=== PATIENT | female | born 1965 ===

== ENCOUNTER 2016-04-07 08:16 | Emergency (ER) | payer OTHER ==
--- NOTE | 2016-04-07 09:11 | ED CLINICAL REPORT ---
Clinical Report - Physicians/Mid Levels [facility] [address] [place] [address] 04/07/2016 8:19 Patient: NICOLE MARTIN Time Seen: 08:35; initial patient contact. Arrived- By private vehicle. Historian- patient. HISTORY OF PRESENT ILLNESS Chief Complaint: DENTAL PAIN. This started about 1 week ago and is still present. It was gradual in onset. Pain described as moderate. The patient has had toothache and nasal congestion. No swollen jaw or face, jaw pain or facial pain. Similar symptoms previously: Several times. Recent medical care: The patient was seen recently in a clinic. ( Dental extraction 4 days ago, out of Clinda and pain Rx.). REVIEW OF SYSTEMS No fever or headache. All systems otherwise negative, except as recorded above. PAST HISTORY Type II diabetes. High cholesterol. Hypertenson. Medications: Metformin 2000 mg bid. Allergies: Bactrim. Ciprofloxacin. Diflucan. SOCIAL HISTORY Former smoker. No alcohol use or drug use. ADDITIONAL NOTES The nursing notes have been reviewed with agreement regarding the chief complaint, PMH and patient medications and allergies. PHYSICAL EXAM Vital Signs: 04/07/2016 08:30 BP: 134/66. HR: 80. RR: 18. O2 saturation: 100%. Temp: 97.7 F. Pain level now: 7/10. Have been reviewed as normal. Appearance: Alert. No acute distress. Head: Normal external inspection. ENT: Severe, extensive dental decay. Moderate dental tenderness of multiple teeth (upper right medial incisor, upper left medial incisor). No trismus present. The mucous membranes are not dry. Neck: No adenopathy. CVS: Normal heart rate and rhythm. Heart sounds normal. Respiratory: No respiratory distress. Breath sounds normal. PROGRESS AND PROCEDURES Disposition: Discharged home in good condition. Condition: good. CLINICAL IMPRESSION Alveolar dental abscess with sinus tract. INSTRUCTIONS Prescription Medications: Hydrocodone/APAP 5mg / 325mg: take 1 orally every 6 hours as needed for pain. Dispense fifteen (15). No refill. Cleocin 300 mg: take 1 capsule orally every 8 hours for 7 days. No refill. Substitution is permissible. (Electronically signed by Oscar Hickey Dr. 04/07/2016 9:13)
--- NOTE | 2016-04-07 09:11 | ED CLINICAL REPORT ---
Clinical Report - Physicians/Mid Levels [facility] [address] [place] [address] 04/07/2016 8:19 Patient: NICOLE MARTIN Time Seen: 08:35; initial patient contact. Arrived- By private vehicle. Historian- patient. HISTORY OF PRESENT ILLNESS Chief Complaint: DENTAL PAIN. This started about 1 week ago and is still present. It was gradual in onset. Pain described as moderate. The patient has had toothache and nasal congestion. No swollen jaw or face, jaw pain or facial pain. Similar symptoms previously: Several times. Recent medical care: The patient was seen recently in a clinic. ( Dental extraction 4 days ago, out of Clinda and pain Rx.). REVIEW OF SYSTEMS No fever or headache. All systems otherwise negative, except as recorded above. PAST HISTORY Type II diabetes. High cholesterol. Hypertenson. Medications: Metformin 2000 mg bid. Allergies: Bactrim. Ciprofloxacin. Diflucan. SOCIAL HISTORY Former smoker. No alcohol use or drug use. ADDITIONAL NOTES The nursing notes have been reviewed with agreement regarding the chief complaint, PMH and patient medications and allergies. PHYSICAL EXAM Vital Signs: 04/07/2016 08:30 BP: 134/66. HR: 80. RR: 18. O2 saturation: 100%. Temp: 97.7 F. Pain level now: 7/10. Have been reviewed as normal. Appearance: Alert. No acute distress. Head: Normal external inspection. ENT: Severe, extensive dental decay. Moderate dental tenderness of multiple teeth (upper right medial incisor, upper left medial incisor). No trismus present. The mucous membranes are not dry. Neck: No adenopathy. CVS: Normal heart rate and rhythm. Heart sounds normal. Respiratory: No respiratory distress. Breath sounds normal. PROGRESS AND PROCEDURES Disposition: Discharged home in good condition. Condition: good. CLINICAL IMPRESSION Alveolar dental abscess with sinus tract. INSTRUCTIONS Prescription Medications: Hydrocodone/APAP 5mg / 325mg: take 1 orally every 6 hours as needed for pain. Dispense fifteen (15). No refill. Cleocin 300 mg: take 1 capsule orally every 8 hours for 7 days. No refill. Substitution is permissible. (Electronically signed by Oscar Hickey Dr. 04/07/2016 9:13)
--- NOTE | 2016-04-07 09:12 | ED ORDER SUMMARY ---
..... Patient: NICOLE MARTIN OrderSheet [facility] VisitID: [id number] [address] [place] [address] 50y, F Registration Date/Time: 04/07/2016 ORDER SHEET Weight: 86.1 kg (stated) Allergies: Ciprofloxacin, Diflucan, Bactrim GENERAL ORDERS: MEDICATION ORDERS: Toradol IM 60 mg (NOW) (08:48 04/07/2016 Erik Reese) (Ack 8:55 SStone R.N.) (9:01 SStone R.N.) Clindamycin PO 300 mg (NOW) (08:49 04/07/2016 Erik Reese) (Ack 8:55 SStone R.N.) (9:01 SStone R.N.) IV FLUIDS: ORDER SHEET NOTES: [Electronically signed by Oscar Hickey Dr. (09:13 04/07/2016)] [Electronically signed by Samantha Tate R.N. (09:19 04/07/2016)] [Electronically locked/signed by Samantha Tate R.N. (09:19 04/07/2016)]
--- NOTE | 2016-04-07 09:12 | ED ORDER SUMMARY ---
..... Patient: NICOLE MARTIN OrderSheet [facility] VisitID: [id number] [address] [place] [address] 50y, F Registration Date/Time: 04/07/2016 ORDER SHEET Weight: 86.1 kg (stated) Allergies: Ciprofloxacin, Diflucan, Bactrim GENERAL ORDERS: MEDICATION ORDERS: Toradol IM 60 mg (NOW) (08:48 04/07/2016 Erik Reese) (Ack 8:55 SStone R.N.) (9:01 SStone R.N.) Clindamycin PO 300 mg (NOW) (08:49 04/07/2016 Erik Reese) (Ack 8:55 SStone R.N.) (9:01 SStone R.N.) IV FLUIDS: ORDER SHEET NOTES: [Electronically signed by Oscar Hickey Dr. (09:13 04/07/2016)] [Electronically signed by Samantha Tate R.N. (09:19 04/07/2016)] [Electronically locked/signed by Samantha Tate R.N. (09:19 04/07/2016)]
--- NOTE | 2016-04-07 09:12 | ED NURSING NOTES ---
Clinical Report - Nurses [facility] [address] [place] [address] 04/07/2016 8:19 Patient: NICOLE MARTIN TRIAGE Triage time 08:30. Acuity: LEVEL 4. --08:38 Samantha Tate R.N. 08:30 04/07/16. BP: 134/66. HR: 80. RR: 18. O2 saturation: 100%. Temp: 97.7 F. Pain level now: 09/18. --08:38 Samantha Tate R.N. Chief Complaint: (dental pain from recent extraction). --09:19 Samantha Tate R.N. Weight: 86.1 kg stated. Height/Length: 64 inches Per Patient. BMI: 32.6. --08:35 Samantha Tate R.N. Medications Metformin 2000 mg bid. --08:33 Samantha Tate R.N. Allergies Ciprofloxacin. --08:32 Samantha Tate R.N. Diflucan. --08:32 Samantha Tate R.N. Bactrim. --08:32 Samantha Tate R.N. History Arrived by private vehicle. Historian: patient. This started yesterday. Onset. (pt had two front teeth pulled 4 days ago, now with increased pain, swelling, slight drainage and significant pain. Has fu with dentist Sunday, but could not be seen today.). ( Pt. states she was prescribed #12 Percocet Sunday after procedure, took last tablet yesterday.). ( Pt. has not taken metformin since Sunday.). SURGERY HX: (x 2). ( Right ovary removal, bladder sling). SOCIAL HX: Smoker- current status unknown (quit 20 years ago). No alcohol use or drug use. No infectious disease exposure. SELF HARM ASSESSMENT: A self harm assessment was performed. The patient answered "no" to the question "Do you have thoughts of harming or killing yourself?" and "Have you recently had thoughts about harming or killing others?". FALL RISK ASSESSMENT: Fall risk assessment completed. No fall risk identified. NUTRITIONAL RISK ASSESSMENT: The nutritional risk assessment revealed no deficiencies. FUNCTIONAL ASSESSMENT: Functional assessment: no impairments noted. LEARNING NEEDS ASSESSMENT: The learning needs assessment revealed no barriers. SKIN INTEGRITY ASSESSMENT: Skin integrity risk assessment completed. No skin integrity risk identified. --08:38 Samantha Tate R.N. ( Pt. had been given clindamycin, took last dose this morning.). --08:39 Samantha Tate R.N. ( dental pain). --09:19 Samantha Tate R.N. PROBLEMS: Type II diabetes. High cholesterol. Hypertenson. --08:33 Samantha Tate R.N. Interventions ID band on patient. To treatment room. --08:38 Samantha Tate R.N. PHYSICAL ASSESSMENT GENERAL / NEURO / PSYCH: Alert. Oriented X 4. Appears in no acute distress. HEENT: Pupils equal, round and reactive to light. Pharynx within normal limits. Voice within normal limits. Dental tenderness. Dental decay. ( obvious recent dental extraction, upper). Mucous membranes are pink. RESPIRATORY: Respirations not labored. SKIN: Skin is warm. Normal skin turgor. --08:39 Samantha Tate R.N. NURSING PROGRESS NOTES Reassurance given. Patient identifiers checked. Call light placed in reach. Bed placed in lowest position. Patient waiting for evaluation. --08:40 Samantha Tate R.N. 09:01 04/07/2016 Clindamycin PO Capsules 300 mg given. --09:01 Samantha Tate R.N. 09:04/07/2016 Toradol (Ketorolac Tromethamine) IM 60 mg given. Given in the left gluteus carrie. Allergies verified and confirmed 5 rights. --09:01 Samantha Tate R.N. DISPOSITION / DISCHARGE Departure time: :17. Condition at departure: unchanged and stable. Reviewed medication(s) side effects information. Prescription(s) given to the patient. Patient verbalized understanding. Written instructions provided in Fijian. The patient was discharged home and accompanied by family. She left the Emergency Department ambulatory and via private vehicle. Family member driving. --09:18 Samantha Tate R.N. 09:17 04/07/16. BP: 134/66. HR: 80. RR: 18. O2 saturation: 100%. Temp: 97.7 F. Pain level now: 07/19. --09:18 Samantha Tate R.N. Locked/Released at 04/07/2016 9:19 by Samantha Tate R.N.
--- NOTE | 2016-04-07 09:20 | ED MED RECONCILIATION SUMMARY ---
Patient: NICOLE MARTIN Medication Reconciliation Report [facility] VisitID: [id number] [address] [place] [address] 50y, F Registration Date/Time: 04/07/2016 Weight: 86.1 kg Height/Length: 64 in. BMI: 32.6 ALLERGIES: Bactrim, Ciprofloxacin, Diflucan The patient's Home Medications are listed below: THE FOLLOWING MEDICATIONS NEED TO BE RECONCILED: Metformin 2000 mg bid The source(s) of the original Home Medication information: Not obtained. The following Medications were given to the patient in the Emergency Department: Clindamycin [PO] PO 300 mg, administered: 04/07/2016 9:01:00 AM Toradol [IM] IM 60 mg, administered: 04/07/2016 9:01:00 AM The following Medications were prescribed to the patient: Hydrocodone/APAP 5mg / 325mg: take 1 orally every 6 hours as needed for pain. Dispense fifteen (15). No refill. -- Oscar Hickey Dr. Cleocin 300 mg: take 1 capsule orally every 8 hours for 7 days. No refill. Substitution is permissible. -- Oscar Hickey Dr.
--- NOTE | 2016-04-07 09:20 | ED DISCHARGE INSTRUCTIONS ---
Patient: NICOLE MARTIN General Instructions [facility] VisitID: [id number] [place] [address] 50y, F Registration Date/Time: 04/07/2016 Alveolar dental abscess with sinus tract. INSTRUCTIONS Prescription Medications: Hydrocodone/APAP 5mg / 325mg: take 1 orally every 6 hours as needed for pain. Dispense fifteen (15). No refill. Cleocin 300 mg: take 1 capsule orally every 8 hours for 7 days. No refill. Substitution is permissible. ADDITIONAL INFORMATION Dental Abscess A dental abscess is an infection of the tooth socket. It often starts with a crack or cavity in the tooth. A pocket of pus forms between the tooth and the bone. The infection causes pain and swelling of the gum, cheek or jaw. The pain is often made worse by drinking hot or cold fluids, or biting on hard foods. Pain may be felt in the facial sinus or in the ear. A severe infection can interfere with swallowing and breathing. In the emergency department or clinic, you will be started on an antibiotic. However, final treatment requires drainage of the pus. This can be done by removing the tooth or performing a root canal. A root canal is done by an oral surgeon and involves drilling an opening in the tooth to drain the pus. After the infection has healed, a crown is placed over the tooth. Home care The following guidelines will help you care for your abscess at home: Avoid hot and cold foods and liquids since your tooth may be sensitive to temperature changes. If your tooth is chipped or cracked, or if there is a large open cavity, applyoil of cloves(available kotg-moh-rfrnhws in drug stores) directly to the tooth to reduce pain. Some pharmacies carry an [id number] "toothache kit". This contains oil of cloves and a paste, which can be applied over the exposed tooth to decrease sensitivity. Apply an ice pack (ice cubes in a plastic bag, wrapped in a towel) over the injured area for 20 minutes every 12 hours the first day for pain relief. Continue this 34 times a day until the pain and swelling goes away. You may use acetaminophen or ibuprofen to control pain, unless another medicine was prescribed. If you have chronic liver or kidney disease or ever had a stomach ulcer or GI bleeding, talk with your doctor before using these medicines. An antibiotic will be prescribed. Take it as directed until completed, even if you are feeling better sooner. Follow-up care Follow up as directed with a dentist or oral surgeon. Even though your pain may improve with the treatment given today, only a dentist or oral surgeon can provide full treatment for this problem. When to seek medical care Get prompt medical attention or contact your doctor if any of the following occur: Your face or eyelid becomes swollen or red Pain worsens or spreads to the neck Fever over 100.4F (38.0C) Unusual drowsiness; headache or stiff neck; weakness, or fainting Pus drains from the gum or tooth Difficulty talking, swallowing or breathing Unable to open your mouth wide Hydrocodone Bitartrate, Acetaminophen Oral tablet What is this medicine? ACETAMINOPHEN; HYDROCODONE (a set a SARATH marlon fen; melissa droe KOE done) is a pain reliever. It is used to treat mild to moderate pain. How should I use this medicine? Take this medicine by mouth. Swallow it with a full glass of water. Follow the directions on the prescription label. If the medicine upsets your stomach, take the medicine with food or milk. Do not take more than you are told to take. Talk to your dye house helper regarding the use of this medicine in children. This medicine is not approved for use in children. What side effects may I notice from receiving this medicine? Side effects that you should report to your doctor or health health care technician as soon as possible: allergic reactions like skin rash, itching or hives, swelling of the face, lips, or tongue breathing problems confusion feeling faint or lightheaded, falls stomach pain yellowing of the eyes or skin Side effects that usually do not require medical attention (report to your doctor or health health care technician if they continue or are bothersome): nausea, vomiting stomach upset What may interact with this medicine? alcohol antihistamines isoniazid medicines for depression, anxiety, or psychotic disturbances medicines for sleep muscle relaxants naltrexone narcotic medicines (opiates) for pain phenobarbital ritonavir tramadol What if I miss a dose? If you miss a dose, take it as soon as you can. If it is almost time for your next dose, take only that dose. Do not take double or extra doses. Where should I keep my medicine? Keep out of the reach of children. This medicine can be abused. Keep your medicine in a safe place to protect it from theft. Do not share this medicine with anyone. Selling or giving away this medicine is dangerous and against the law. Store at room temperature between 15 and 30 degrees C (59 and 86 degrees F). Protect from light. Keep container tightly closed. Throw away any unused medicine after the expiration date. Discard unused medicine and used packaging carefully. Pets and children can be harmed if they find used or lost packages. What should I tell my health care provider before I take this medicine? They need to know if you have any of these conditions: brain tumor Crohn's disease, inflammatory bowel disease, or ulcerative colitis drink more than 3 alcohol-containing drinks per day drug abuse or addiction head injury heart or circulation problems kidney disease or problems going to the bathroom liver disease lung disease, asthma, or breathing problems an unusual or allergic reaction to acetaminophen, hydrocodone, other opioid analgesics, other medicines, foods, dyes, or preservatives or trying to get breast-feeding What should I watch for while using this medicine? Tell your doctor or health health care technician if your pain does not go away, if it gets worse, or if you have new or a different type of pain. You may develop tolerance to the medicine. Tolerance means that you will need a higher dose of the medicine for pain relief. Tolerance is normal and is expected if you take the medicine for a long time. Do not suddenly stop taking your medicine because you may develop a severe reaction. Your body becomes used to the medicine. This does NOT mean you are addicted. Addiction is a behavior related to getting and using a drug for a non-medical reason. If you have pain, you have a medical reason to take pain medicine. Your doctor will tell you how much medicine to take. If your doctor wants you to stop the medicine, the dose will be slowly lowered over time to avoid any side effects. You may get drowsy or dizzy when you first start taking the medicine or change doses. Do not drive, use machinery, or do anything that may be dangerous until you know how the medicine affects you. Stand or sit up slowly. There are different types of narcotic medicines (opiates) for pain. If you take more than one type at the same time, you may have more side effects. Give your health care provider a list of all medicines you use. Your doctor will tell you how much medicine to take. Do not take more medicine than directed. Call emergency for help if you have problems breathing. The medicine will cause constipation. Try to have a bowel movement at least every 2 to 3 days. If you do not have a bowel movement for 3 days, call your doctor or health health care technician. Too much acetaminophen can be very dangerous. Do not take Tylenol (acetaminophen) or medicines that contain acetaminophen with this medicine. Many non-prescription medicines contain acetaminophen. Always read the labels carefully. Clindamycin Hydrochloride Oral capsule What is this medicine? CLINDAMYCIN (MILLY Cortes) is a lincosamide antibiotic. It is used to treat certain kinds of bacterial infections. It will not work for colds, flu, or other viral infections. How should I use this medicine? Take this medicine by mouth with a full glass of water. Follow the directions on the prescription label. You can take this medicine with food or on an empty stomach. If the medicine upsets your stomach, take it with food. Take your medicine at regular intervals. Do not take your medicine more often than directed. Take all of your medicine as directed even if you think your are better. Do not skip doses or stop your medicine early. Talk to your dye house helper regarding the use of this medicine in children. Special care may be needed. What side effects may I notice from receiving this medicine? Side effects that you should report to your doctor or health health care technician as soon as possible: allergic reactions like skin rash, itching or hives, swelling of the face, lips, or tongue dark urine pain on swallowing redness, blistering, peeling or loosening of the skin, including inside the mouth unusual bleeding or bruising unusually weak or tired yellowing of eyes or skin Side effects that usually do not require medical attention (report to your doctor or health health care technician if they continue or are bothersome): diarrhea itching in the rectal or genital area joint pain nausea, vomiting stomach pain What may interact with this medicine? chloramphenicol erythromycin kaolin products What if I miss a dose? If you miss a dose, take it as soon as you can. If it is almost time for your next dose, take only that dose. Do not take double or extra doses. Where should I keep my medicine? Keep out of the reach of children. Store at room temperature between 20 and 25 degrees C (68 and 77 degrees F). Throw away any unused medicine after the expiration date. What should I tell my health care provider before I take this medicine? They need to know if you have any of these conditions: kidney disease liver disease stomach problems like colitis an unusual or allergic reaction to clindamycin, lincomycin, or other medicines, foods, dyes like tartrazine or preservatives or trying to get breast-feeding What should I watch for while using this medicine? Tell your doctor or healthcare professional if your symptoms do not start to get better or if they get worse. Do not treat diarrhea with over the counter products. Contact your doctor if you have diarrhea that lasts more than 2 days or if it is severe and watery. You have been given the following additional information: Tooth Abscess Hydrocodone Bitartrate, Acetaminophen Oral tablet Clindamycin Hydrochloride Oral capsule (Electronically signed by Oscar Hickey Dr. 04/07/2016 9:13)
--- NOTE | 2016-04-07 09:20 | ED MAR SUMMARY ---
..... Medication Administration Record [facility] [address] [place] [address] Patient: NICOLE MARTIN Visit ID: [id number] 50y, F Weight: 86.1 kg Height/Length: 64 in BMI: 32.6 ALLERGIES: Bactrim, Diflucan, Ciprofloxacin Given 09:04/07/2016 Samantha Tate R.N. Medication Administered: TORADOL [IM] (KETOROLAC TROMETHAMINE), Dose: 60 mg IM. Medication Ordered: Toradol IM 60 mg (NOW). Given 09:04/07/2016 Samantha Tate R.N. Medication Administered: CLINDAMYCIN [PO], Dose: 300 mg Capsules PO. Medication Ordered: Clindamycin PO 300 mg (NOW).
--- NOTE | 2016-04-07 09:20 | ED DISCHARGE INSTRUCTIONS ---
Patient: NICOLE MARTIN General Instructions [facility] VisitID: [id number] [place] [address] 50y, F Registration Date/Time: 04/07/2016 Alveolar dental abscess with sinus tract. INSTRUCTIONS Prescription Medications: Hydrocodone/APAP 5mg / 325mg: take 1 orally every 6 hours as needed for pain. Dispense fifteen (15). No refill. Cleocin 300 mg: take 1 capsule orally every 8 hours for 7 days. No refill. Substitution is permissible. ADDITIONAL INFORMATION Dental Abscess A dental abscess is an infection of the tooth socket. It often starts with a crack or cavity in the tooth. A pocket of pus forms between the tooth and the bone. The infection causes pain and swelling of the gum, cheek or jaw. The pain is often made worse by drinking hot or cold fluids, or biting on hard foods. Pain may be felt in the facial sinus or in the ear. A severe infection can interfere with swallowing and breathing. In the emergency department or clinic, you will be started on an antibiotic. However, final treatment requires drainage of the pus. This can be done by removing the tooth or performing a root canal. A root canal is done by an oral surgeon and involves drilling an opening in the tooth to drain the pus. After the infection has healed, a crown is placed over the tooth. Home care The following guidelines will help you care for your abscess at home: Avoid hot and cold foods and liquids since your tooth may be sensitive to temperature changes. If your tooth is chipped or cracked, or if there is a large open cavity, applyoil of cloves(available hebj-lyx-qwwrgnx in drug stores) directly to the tooth to reduce pain. Some pharmacies carry an bnfr-ifu-czztmxn "toothache kit". This contains oil of cloves and a paste, which can be applied over the exposed tooth to decrease sensitivity. Apply an ice pack (ice cubes in a plastic bag, wrapped in a towel) over the injured area for 20 minutes every 12 hours the first day for pain relief. Continue this 34 times a day until the pain and swelling goes away. You may use acetaminophen or ibuprofen to control pain, unless another medicine was prescribed. If you have chronic liver or kidney disease or ever had a stomach ulcer or GI bleeding, talk with your doctor before using these medicines. An antibiotic will be prescribed. Take it as directed until completed, even if you are feeling better sooner. Follow-up care Follow up as directed with a dentist or oral surgeon. Even though your pain may improve with the treatment given today, only a dentist or oral surgeon can provide full treatment for this problem. When to seek medical care Get prompt medical attention or contact your doctor if any of the following occur: Your face or eyelid becomes swollen or red Pain worsens or spreads to the neck Fever over 100.4F (38.0C) Unusual drowsiness; headache or stiff neck; weakness, or fainting Pus drains from the gum or tooth Difficulty talking, swallowing or breathing Unable to open your mouth wide Hydrocodone Bitartrate, Acetaminophen Oral tablet What is this medicine? ACETAMINOPHEN; HYDROCODONE (a set a SARATH marlon fen; melissa droe KOE done) is a pain reliever. It is used to treat mild to moderate pain. How should I use this medicine? Take this medicine by mouth. Swallow it with a full glass of water. Follow the directions on the prescription label. If the medicine upsets your stomach, take the medicine with food or milk. Do not take more than you are told to take. Talk to your cyber systems operations specialist regarding the use of this medicine in children. This medicine is not approved for use in children. What side effects may I notice from receiving this medicine? Side effects that you should report to your doctor or health director day care center as soon as possible: allergic reactions like skin rash, itching or hives, swelling of the face, lips, or tongue breathing problems confusion feeling faint or lightheaded, falls stomach pain yellowing of the eyes or skin Side effects that usually do not require medical attention (report to your doctor or health director day care center if they continue or are bothersome): nausea, vomiting stomach upset What may interact with this medicine? alcohol antihistamines isoniazid medicines for depression, anxiety, or psychotic disturbances medicines for sleep muscle relaxants naltrexone narcotic medicines (opiates) for pain phenobarbital ritonavir tramadol What if I miss a dose? If you miss a dose, take it as soon as you can. If it is almost time for your next dose, take only that dose. Do not take double or extra doses. Where should I keep my medicine? Keep out of the reach of children. This medicine can be abused. Keep your medicine in a safe place to protect it from theft. Do not share this medicine with anyone. Selling or giving away this medicine is dangerous and against the law. Store at room temperature between 15 and 30 degrees C (59 and 86 degrees F). Protect from light. Keep container tightly closed. Throw away any unused medicine after the expiration date. Discard unused medicine and used packaging carefully. Pets and children can be harmed if they find used or lost packages. What should I tell my health care provider before I take this medicine? They need to know if you have any of these conditions: brain tumor Crohn's disease, inflammatory bowel disease, or ulcerative colitis drink more than 3 alcohol-containing drinks per day drug abuse or addiction head injury heart or circulation problems kidney disease or problems going to the bathroom liver disease lung disease, asthma, or breathing problems an unusual or allergic reaction to acetaminophen, hydrocodone, other opioid analgesics, other medicines, foods, dyes, or preservatives or trying to get breast-feeding What should I watch for while using this medicine? Tell your doctor or health director day care center if your pain does not go away, if it gets worse, or if you have new or a different type of pain. You may develop tolerance to the medicine. Tolerance means that you will need a higher dose of the medicine for pain relief. Tolerance is normal and is expected if you take the medicine for a long time. Do not suddenly stop taking your medicine because you may develop a severe reaction. Your body becomes used to the medicine. This does NOT mean you are addicted. Addiction is a behavior related to getting and using a drug for a non-medical reason. If you have pain, you have a medical reason to take pain medicine. Your doctor will tell you how much medicine to take. If your doctor wants you to stop the medicine, the dose will be slowly lowered over time to avoid any side effects. You may get drowsy or dizzy when you first start taking the medicine or change doses. Do not drive, use machinery, or do anything that may be dangerous until you know how the medicine affects you. Stand or sit up slowly. There are different types of narcotic medicines (opiates) for pain. If you take more than one type at the same time, you may have more side effects. Give your health care provider a list of all medicines you use. Your doctor will tell you how much medicine to take. Do not take more medicine than directed. Call emergency for help if you have problems breathing. The medicine will cause constipation. Try to have a bowel movement at least every 2 to 3 days. If you do not have a bowel movement for 3 days, call your doctor or health director day care center. Too much acetaminophen can be very dangerous. Do not take Tylenol (acetaminophen) or medicines that contain acetaminophen with this medicine. Many non-prescription medicines contain acetaminophen. Always read the labels carefully. Clindamycin Hydrochloride Oral capsule What is this medicine? CLINDAMYCIN (MILLY Cortes) is a lincosamide antibiotic. It is used to treat certain kinds of bacterial infections. It will not work for colds, flu, or other viral infections. How should I use this medicine? Take this medicine by mouth with a full glass of water. Follow the directions on the prescription label. You can take this medicine with food or on an empty stomach. If the medicine upsets your stomach, take it with food. Take your medicine at regular intervals. Do not take your medicine more often than directed. Take all of your medicine as directed even if you think your are better. Do not skip doses or stop your medicine early. Talk to your cyber systems operations specialist regarding the use of this medicine in children. Special care may be needed. What side effects may I notice from receiving this medicine? Side effects that you should report to your doctor or health director day care center as soon as possible: allergic reactions like skin rash, itching or hives, swelling of the face, lips, or tongue dark urine pain on swallowing redness, blistering, peeling or loosening of the skin, including inside the mouth unusual bleeding or bruising unusually weak or tired yellowing of eyes or skin Side effects that usually do not require medical attention (report to your doctor or health director day care center if they continue or are bothersome): diarrhea itching in the rectal or genital area joint pain nausea, vomiting stomach pain What may interact with this medicine? chloramphenicol erythromycin kaolin products What if I miss a dose? If you miss a dose, take it as soon as you can. If it is almost time for your next dose, take only that dose. Do not take double or extra doses. Where should I keep my medicine? Keep out of the reach of children. Store at room temperature between 20 and 25 degrees C (68 and 77 degrees F). Throw away any unused medicine after the expiration date. What should I tell my health care provider before I take this medicine? They need to know if you have any of these conditions: kidney disease liver disease stomach problems like colitis an unusual or allergic reaction to clindamycin, lincomycin, or other medicines, foods, dyes like tartrazine or preservatives or trying to get breast-feeding What should I watch for while using this medicine? Tell your doctor or healthcare professional if your symptoms do not start to get better or if they get worse. Do not treat diarrhea with over the counter products. Contact your doctor if you have diarrhea that lasts more than 2 days or if it is severe and watery. You have been given the following additional information: Tooth Abscess Hydrocodone Bitartrate, Acetaminophen Oral tablet Clindamycin Hydrochloride Oral capsule (Electronically signed by Oscar Hickey Dr. 04/07/2016 9:13)
--- NOTE | 2016-04-07 09:20 | ED MAR SUMMARY ---
..... Medication Administration Record [facility] [address] [place] [address] Patient: NICOLE MARTIN Visit ID: [id number] 50y, F Weight: 86.1 kg Height/Length: 64 in BMI: 32.6 ALLERGIES: Bactrim, Diflucan, Ciprofloxacin Given 09:04/07/2016 Samantha Tate R.N. Medication Administered: TORADOL [IM] (KETOROLAC TROMETHAMINE), Dose: 60 mg IM. Medication Ordered: Toradol IM 60 mg (NOW). Given 09:04/07/2016 Samantha Tate R.N. Medication Administered: CLINDAMYCIN [PO], Dose: 300 mg Capsules PO. Medication Ordered: Clindamycin PO 300 mg (NOW).
--- NOTE | 2016-04-07 09:20 | ED MED RECONCILIATION SUMMARY ---
Patient: NICOLE MARTIN Medication Reconciliation Report [facility] VisitID: [id number] [address] [place] [address] 50y, F Registration Date/Time: 04/07/2016 Weight: 86.1 kg Height/Length: 64 in. BMI: 32.6 ALLERGIES: Bactrim, Ciprofloxacin, Diflucan The patient's Home Medications are listed below: THE FOLLOWING MEDICATIONS NEED TO BE RECONCILED: Metformin 2000 mg bid The source(s) of the original Home Medication information: Not obtained. The following Medications were given to the patient in the Emergency Department: Clindamycin [PO] PO 300 mg, administered: 04/07/2016 9:01:00 AM Toradol [IM] IM 60 mg, administered: 04/07/2016 9:01:00 AM The following Medications were prescribed to the patient: Hydrocodone/APAP 5mg / 325mg: take 1 orally every 6 hours as needed for pain. Dispense fifteen (15). No refill. -- Oscar Hickey Dr. Cleocin 300 mg: take 1 capsule orally every 8 hours for 7 days. No refill. Substitution is permissible. -- Oscar Hickey Dr.
== END 2016-04-07 09:17 | disposition home or self-care (01) ==
LOC: ED SRH 08:16
DX: K04.6 Periapical abscess with sinus (principal); I10 Essential (primary) hypertension; E11.9 Type 2 diabetes mellitus without complications; Z79.84 Long term (current) use of oral hypoglycemic drugs; Z88.1 Allergy status to other antibiotic agents; Z88.8 Allergy status to other drugs, medicaments and biological substances; Z87.891 Personal history of nicotine dependence

== ENCOUNTER 2016-04-14 11:59 | Emergency (ER) | payer OTHER ==
--- NOTE | 2016-04-14 12:48 | DIAGNOSTIC IMAGING REPORT ---
PROCEDURE: XR KNEE 4 VIEWS - RIGHT INDICATION: TRAUMA/INJURY TECHNIQUE: Four views. COMPARISON: None. FINDINGS: No fracture or dislocation. There is patellofemoral osteoarthritis. IMPRESSION: 1. No fracture. Patellofemoral osteoarthritis.
--- NOTE | 2016-04-14 13:07 | ED NURSING NOTES ---
Clinical Report - Nurses [facility] [address] [place] [address] 04/14/2016 12:00 Patient: NICOLE MARTIN TRIAGE Triage time 1205. Acuity: LEVEL 4. Chief Complaint: INJURY TO RIGHT KNEE. --12:10 Africa Bright R.N. 12:05 04/14/16. BP: 149/76. HR: 86. RR: 20. O2 saturation: 100%. Temp: 97.7 F. Pain level now: 09/18. --12:10 Africa Bright R.N. Weight: 86.1 kg stated. Height/Length: 64 inches Per Patient. BMI: 32.6. --12:06 Africa Bright R.N. Medications Metformin 2000 mg bid. --12:10 Africa Bright R.N. Allergies Bactrim.(rash) Ciprofloxacin.(hives) Diflucan.(rash) --12:10 Africa Bright R.N. Amoxicillin.(rash) --12:10 Africa Bright R.N. History Arrived by private vehicle. Historian: patient. Accompanied by family. No primary care physician. This occurred yesterday. Mechanism of injury: fell (slipped on wet ground, fell on knee onto concrete). She has had trouble walking (trouble getting up). SOCIAL HX: Smoker- current status unknown (quit 20 years ago). No alcohol use or drug use. --12:10 Africa Bright R.N. PROBLEMS: Dental Abscess. Type II diabetes. High cholesterol. Hypertenson. --12:09 Africa Bright R.N. ADDITIONAL SURGERIES: . --12:09 Africa Bright R.N. Interventions ID band on patient. To treatment room. --12:10 Africa Bright R.N. PHYSICAL ASSESSMENT 12:05. Ambulatory to room. GENERAL / NEURO / PSYCH: Oriented X 4. Appears in pain. EXTREMITIES: Limited ROM present. Pain with weight bearing. Right knee: tenderness and swelling. SKIN: Skin is warm and dry. --12:11 Africa Bright R.N. NURSING PROGRESS NOTES 12:05. Cold pack applied. Reassurance given. Patient identifiers checked. Call light placed in reach. Side rails up. Bed placed in lowest position. Patient ready for evaluation- chart flagged. --12:11 Africa Bright R.N. 12:16 04/14/16. Care transferred and report given (Arlene Cordova EDRLinda). --12:16 Africa Bright R.N. 13:20. The patient is calm and resting quietly. Overall patient status is the same- she states feels the same. GENERAL / NEURO / PSYCH: Alert. Oriented X 4. RESPIRATORY: No respiratory distress. SKIN: Skin is warm and dry. --13:56 Arlene Gupta R.N. DISPOSITION / DISCHARGE Departure time: 1320. Condition at departure: stable. No learning barriers present. Discharge instructions provided and reviewed with the patient. Reviewed medication(s). Prescription(s) given to the patient. Patient verbalized understanding. Written instructions provided in Slovak. The patient was discharged home and accompanied by family. She left the Emergency Department ambulatory and via private vehicle. FALL RISK ASSESSMENT: Fall risk assessment completed. No fall risk identified. --13:55 Arlene Gupta R.N. 13:52 04/14/16. BP: 148/94. HR: 90. RR: 18. O2 saturation: 100%. Pain level now: 07/19. --13:55 Arlene Gupta R.N. Locked/Released at 04/14/2016 13:57 by Arlene Gupta R.N.
--- NOTE | 2016-04-14 13:07 | ED CLINICAL REPORT ---
Clinical Report - Physicians/Mid Levels [facility] [address] [place] [address] 04/14/2016 12:00 [id number] Time Seen: 12:31 Apr 14 2016. Arrived- By private vehicle. Historian- patient. CPT: ER phys charges level 3 (#[id number]). HISTORY OF PRESENT ILLNESS Chief Complaint: Injury to right knee. The injury happened yesterday. Occurred at home. ( This occurred yesterday. Mechanism of injury: fell (slipped on wet ground, fell on knee onto concrete). She has had trouble walking (trouble getting up).). Fell. Patient is experiencing moderate pain. No other injury. REVIEW OF SYSTEMS The patient complains of pain on weight bearing. She has had swelling. No tingling, weakness, numbness, suspected foreign body or skin laceration. All systems otherwise negative, except as recorded above. PAST HISTORY See nurses notes. ( Dental Abscess. Type II diabetes. High cholesterol. Hypertenson ). Hypertension. Diabetes mellitus. Stroke. History of headaches. Transient ischemic attack. Urinary tract infection. (abscess). Tetanus immunization status is up-to-date. Surgeries: . Had hysterectomy. (Bladder augmentation with sling.). Medications: Metformin 2000 mg bid. Allergies: Amoxicillin.(rash) Bactrim.(rash) Ciprofloxacin.(hives) Diflucan.(rash). SOCIAL HISTORY Former smoker. No alcohol use or drug use. ADDITIONAL NOTES The nursing notes have been reviewed. PHYSICAL EXAM Vital Signs: 04/14/2016 12:05 BP: 149/76. HR: 86. RR: 20. O2 saturation: 100%. Temp: 97.7 F. Pain level now: 7/10. Appearance: Alert. Patient in mild distress. Head: Head atraumatic. Neck: Normal inspection. C-spine non-tender. CVS: Normal heart rate and rhythm. Respiratory: No respiratory distress. Chest nontender. Abdomen: Nontender. Back: No tenderness. ROM normal. Skin: Skin intact. Skin warm. Normal skin color. Extremities: Right knee: moderate tenderness and mild swelling located in the infrapatellar area. Limited ROM secondary to pain. Neurovascular intact distally. No ligamentous laxity present. No joint effusion. No laceration, abrasion, ecchymosis or deformity. Extremities otherwise negative. Gait: Gait not tested due to pain. Neuro, Vascular and Tendons: Vascular status intact. Sensation intact. Motor intact. Neuro: Oriented X 3. No motor deficit. No sensory deficit. LABS, X-RAYS, AND EKG Rt Knee X-ray: Moderate degenerative joint disease (patellofemoral.). Views: AP, lateral and oblique. The X-rays were independently viewed by me and interpreted by the radiologist and contemporaneously by me. PROGRESS AND PROCEDURES Patient/family counseled. Disposition: Discharged. Condition: stable. CLINICAL IMPRESSION Contusion to the right knee. Fall on same level by tripping. DJD right knee. INSTRUCTIONS Apply ice for 15-20 minutes three times a day for one days followed by moist heat. Use crutches. You may walk and bear weight as tolerated. Your Current Medications: CONTINUE TAKING THE FOLLOWING MEDICATIONS: Metformin 2000 mg bid*. Prescription Medications: Hydrocodone/APAP 5mg/325mg: take 1 to 2 orally every 6 hours as needed for pain. Dispense fifteen (15). No refills. OTC Medications: Motrin (available over the counter): take according to label instructions. Understanding of the discharge instructions verbalized by patient and family. Follow-up with: [facility], , , [address], , [place], [id number] Follow up in one week. Call for an appointment. (Electronically signed by Jj Rizvi MD 04/14/2016 19:53)
--- NOTE | 2016-04-14 13:07 | ED CLINICAL REPORT ---
Clinical Report - Physicians/Mid Levels [facility] [address] [place] [address] 04/14/2016 12:00 [id number] Time Seen: 12:31 Apr 14 2016. Arrived- By private vehicle. Historian- patient. CPT: ER phys charges level 3 (#[id number]). HISTORY OF PRESENT ILLNESS Chief Complaint: Injury to right knee. The injury happened yesterday. Occurred at home. ( This occurred yesterday. Mechanism of injury: fell (slipped on wet ground, fell on knee onto concrete). She has had trouble walking (trouble getting up).). Fell. Patient is experiencing moderate pain. No other injury. REVIEW OF SYSTEMS The patient complains of pain on weight bearing. She has had swelling. No tingling, weakness, numbness, suspected foreign body or skin laceration. All systems otherwise negative, except as recorded above. PAST HISTORY See nurses notes. ( Dental Abscess. Type II diabetes. High cholesterol. Hypertenson ). Hypertension. Diabetes mellitus. Stroke. History of headaches. Transient ischemic attack. Urinary tract infection. (abscess). Tetanus immunization status is up-to-date. Surgeries: . Had hysterectomy. (Bladder augmentation with sling.). Medications: Metformin 2000 mg bid. Allergies: Amoxicillin.(rash) Bactrim.(rash) Ciprofloxacin.(hives) Diflucan.(rash). SOCIAL HISTORY Former smoker. No alcohol use or drug use. ADDITIONAL NOTES The nursing notes have been reviewed. PHYSICAL EXAM Vital Signs: 04/14/2016 12:05 BP: 149/76. HR: 86. RR: 20. O2 saturation: 100%. Temp: 97.7 F. Pain level now: 7/10. Appearance: Alert. Patient in mild distress. Head: Head atraumatic. Neck: Normal inspection. C-spine non-tender. CVS: Normal heart rate and rhythm. Respiratory: No respiratory distress. Chest nontender. Abdomen: Nontender. Back: No tenderness. ROM normal. Skin: Skin intact. Skin warm. Normal skin color. Extremities: Right knee: moderate tenderness and mild swelling located in the infrapatellar area. Limited ROM secondary to pain. Neurovascular intact distally. No ligamentous laxity present. No joint effusion. No laceration, abrasion, ecchymosis or deformity. Extremities otherwise negative. Gait: Gait not tested due to pain. Neuro, Vascular and Tendons: Vascular status intact. Sensation intact. Motor intact. Neuro: Oriented X 3. No motor deficit. No sensory deficit. LABS, X-RAYS, AND EKG Rt Knee X-ray: Moderate degenerative joint disease (patellofemoral.). Views: AP, lateral and oblique. The X-rays were independently viewed by me and interpreted by the radiologist and contemporaneously by me. PROGRESS AND PROCEDURES Patient/family counseled. Disposition: Discharged. Condition: stable. CLINICAL IMPRESSION Contusion to the right knee. Fall on same level by tripping. DJD right knee. INSTRUCTIONS Apply ice for 15-20 minutes three times a day for one days followed by moist heat. Use crutches. You may walk and bear weight as tolerated. Your Current Medications: CONTINUE TAKING THE FOLLOWING MEDICATIONS: Metformin 2000 mg bid*. Prescription Medications: Hydrocodone/APAP 5mg/325mg: take 1 to 2 orally every 6 hours as needed for pain. Dispense fifteen (15). No refills. OTC Medications: Motrin (available over the counter): take according to label instructions. Understanding of the discharge instructions verbalized by patient and family. Follow-up with: [facility], , , [address], , [place], [id number] Follow up in one week. Call for an appointment. (Electronically signed by Jj Rizvi MD 04/14/2016 19:53)
--- NOTE | 2016-04-14 13:07 | ED NURSING NOTES ---
Clinical Report - Nurses [facility] [address] [place] [address] 04/14/2016 12:00 Patient: NICOLE MARTIN TRIAGE Triage time 1205. Acuity: LEVEL 4. Chief Complaint: INJURY TO RIGHT KNEE. --12:10 Africa Bright R.N. 12:05 04/14/16. BP: 149/76. HR: 86. RR: 20. O2 saturation: 100%. Temp: 97.7 F. Pain level now: 09/18. --12:10 Africa Bright R.N. Weight: 86.1 kg stated. Height/Length: 64 inches Per Patient. BMI: 32.6. --12:06 Africa Bright R.N. Medications Metformin 2000 mg bid. --12:10 Africa Bright R.N. Allergies Bactrim.(rash) Ciprofloxacin.(hives) Diflucan.(rash) --12:10 Africa Bright R.N. Amoxicillin.(rash) --12:10 Africa Bright R.N. History Arrived by private vehicle. Historian: patient. Accompanied by family. No primary care physician. This occurred yesterday. Mechanism of injury: fell (slipped on wet ground, fell on knee onto concrete). She has had trouble walking (trouble getting up). SOCIAL HX: Smoker- current status unknown (quit 20 years ago). No alcohol use or drug use. --12:10 Africa Bright R.N. PROBLEMS: Dental Abscess. Type II diabetes. High cholesterol. Hypertenson. --12:09 Africa Bright R.N. ADDITIONAL SURGERIES: . --12:09 Africa Bright R.N. Interventions ID band on patient. To treatment room. --12:10 Africa Bright R.N. PHYSICAL ASSESSMENT 12:05. Ambulatory to room. GENERAL / NEURO / PSYCH: Oriented X 4. Appears in pain. EXTREMITIES: Limited ROM present. Pain with weight bearing. Right knee: tenderness and swelling. SKIN: Skin is warm and dry. --12:11 Africa Bright R.N. NURSING PROGRESS NOTES 12:05. Cold pack applied. Reassurance given. Patient identifiers checked. Call light placed in reach. Side rails up. Bed placed in lowest position. Patient ready for evaluation- chart flagged. --12:11 Africa Bright R.N. 12:16 04/14/16. Care transferred and report given (Arlene Cordova EDRLinda). --12:16 Africa Bright R.N. 13:20. The patient is calm and resting quietly. Overall patient status is the same- she states feels the same. GENERAL / NEURO / PSYCH: Alert. Oriented X 4. RESPIRATORY: No respiratory distress. SKIN: Skin is warm and dry. --13:56 Arlene Gupta R.N. DISPOSITION / DISCHARGE Departure time: 1320. Condition at departure: stable. No learning barriers present. Discharge instructions provided and reviewed with the patient. Reviewed medication(s). Prescription(s) given to the patient. Patient verbalized understanding. Written instructions provided in Malay. The patient was discharged home and accompanied by family. She left the Emergency Department ambulatory and via private vehicle. FALL RISK ASSESSMENT: Fall risk assessment completed. No fall risk identified. --13:55 Arlene Gupta R.N. 13:52 04/14/16. BP: 148/94. HR: 90. RR: 18. O2 saturation: 100%. Pain level now: 07/19. --13:55 Arlene Gupta R.N. Locked/Released at 04/14/2016 13:57 by Arlene Gupta R.N.
--- NOTE | 2016-04-14 13:08 | ED ORDER SUMMARY ---
..... Patient: NICOLE MARTIN OrderSheet [facility] VisitID: [id number] [address] [place] [address] 50y, F Registration Date/Time: 04/14/2016 ORDER SHEET Weight: 86.1 kg (stated) Allergies: Bactrim, Ciprofloxacin, Diflucan, Amoxicillin GENERAL ORDERS: Knee 4V Right Urgent (12:17 04/14/2016 DDean R.N. per protocol) [facility] (12:43 DDean R.N.) MEDICATION ORDERS: IV FLUIDS: ORDER SHEET NOTES: [Electronically signed by Arlene Gupta R.N. (13:57 04/14/2016)] [Electronically signed by Jj Rizvi MD (19:53 04/14/2016)] [Electronically locked/signed by Arlene Gupta R.N. (13:57 04/14/2016)]
--- NOTE | 2016-04-14 13:08 | ED ORDER SUMMARY ---
..... Patient: NICOLE MARTIN OrderSheet [facility] VisitID: [id number] [address] [place] [address] 50y, F Registration Date/Time: 04/14/2016 ORDER SHEET Weight: 86.1 kg (stated) Allergies: Bactrim, Ciprofloxacin, Diflucan, Amoxicillin GENERAL ORDERS: Knee 4V Right Urgent (12:17 04/14/2016 DDean R.N. per protocol) [facility] (12:43 DDean R.N.) MEDICATION ORDERS: IV FLUIDS: ORDER SHEET NOTES: [Electronically signed by Arlene Gupta R.N. (13:57 04/14/2016)] [Electronically signed by Jj Rizvi MD (19:53 04/14/2016)] [Electronically locked/signed by Arlene Gupta R.N. (13:57 04/14/2016)]
--- NOTE | 2016-04-14 19:54 | ED DISCHARGE INSTRUCTIONS ---
Patient: INCOLE MARTIN General Instructions [facility] VisitID: [id number] [address] [place] [address] 50y, F Registration Date/Time: 04/14/2016 Contusion to the right knee. Fall on same level by tripping. DJD right knee. INSTRUCTIONS Apply ice for 15-20 minutes three times a day for one days followed by moist heat. Use crutches. You may walk and bear weight as tolerated. Your Current Medications: CONTINUE TAKING THE FOLLOWING MEDICATIONS: Metformin 2000 mg bid*. Prescription Medications: Hydrocodone/APAP 5mg/325mg: take 1 to 2 orally every 6 hours as needed for pain. Dispense fifteen (15). No refills. OTC Medications: Motrin (available over the counter): take according to label instructions. Understanding of the discharge instructions verbalized by patient and family. Follow-up with: [facility], , , [address], , [place], [id number] Follow up in one week. Call for an appointment. ADDITIONAL INFORMATION Mechanical Fall You have had a fall today. It appears that the cause is mechanical. That means that you slipped, tripped or lost your balance. If your fall had been due to fainting or a seizure, further tests would be required. Home Care: Rest today and resume your normal activities when you are feeling back to normal. If you were injured during the fall, follow the advice from your doctor regarding care of your injury. You may use acetaminophen (Tylenol) or ibuprofen (Motrin, Advil) to control pain, unless another pain medicine was prescribed. [NOTE: If you have chronic liver or kidney disease or ever had a stomach ulcer or GI bleeding, talk with your doctor before using these medicines.] Fall Prevention: Was there anything that caused your fall that can be fixed, removed, or replaced? Make your home safe by keeping walkways clear of objects you may trip over. Use non-slip pads under rugs. Do not walk in poorly lit areas. Do not stand on chairs or wobbly ladders. Use caution when reaching overhead or looking upward. This position can cause a loss of balance. Be sure your shoes fit properly, have non-slip bottoms and are in good condition. Be cautious when going up and down curbs, and walking on uneven sidewalks. If your balance is poor, consider using a cane or walker. Stay as active as you can. Balance, flexibility, strength, and endurance all come from exercise. They all play a role in preventing falls. Follow Up with your doctor or as advised by our staff. Get Prompt Medical Attention if any of the following occur: Repeated mechanical falls, or unexplained falls Dizziness, fainting or seizure Severe headache Chest pain or shortness of breath Palpitations (very rapid or very slow or irregular heartbeat) Blood in vomit, stools (black or red color) Weakness of an arm or leg or one side of the face Difficulty with speech or vision Contusion,Soft Tissue You have a CONTUSION, which is a bruise with swelling and some bleeding under the skin. There are no broken bones. This injury takes a few days to a few weeks to heal. Home Care: 1) Keep the injured part elevated to reduce pain and swelling. This is especially important during the first 48 hours. 2) Make an ice pack (ice cubes in a plastic bag, wrapped in a towel) and apply for 20 minutes every 1-2 hours the first day. Continue this 3-4 times a day until the pain and swelling goes away. 3) You may use acetaminophen (Tylenol) or ibuprofen (Motrin, Advil) to control pain, unless another pain medicine was prescribed. [ NOTE : If you have chronic liver or kidney disease or ever had a stomach ulcer or GI bleeding, talk with your doctor before using these medicines.] Follow Up with your doctor or this facility if you are not improving within the next THREE days. [NOTE: If X-rays were taken, they will be reviewed by a radiologist. You will be notified of any new findings that may affect your care.] Get Prompt Medical Attention if any of the following occur: -- Pain or swelling increases -- Injured arm or leg becomes cold, blue, numb or tingly -- Redness, warmth or drainage from the skin You have been given the following additional information: Fall, Mechanical Contusion, Soft Tissue You may walk and bear weight as tolerated. (Electronically signed by Jj Rizvi MD 04/14/2016 19:53)
--- NOTE | 2016-04-14 19:54 | ED DISCHARGE INSTRUCTIONS ---
Patient: NICOLE MARTIN General Instructions [facility] VisitID: [id number] [address] [place] [address] 50y, F Registration Date/Time: 04/14/2016 Contusion to the right knee. Fall on same level by tripping. DJD right knee. INSTRUCTIONS Apply ice for 15-20 minutes three times a day for one days followed by moist heat. Use crutches. You may walk and bear weight as tolerated. Your Current Medications: CONTINUE TAKING THE FOLLOWING MEDICATIONS: Metformin 2000 mg bid*. Prescription Medications: Hydrocodone/APAP 5mg/325mg: take 1 to 2 orally every 6 hours as needed for pain. Dispense fifteen (15). No refills. OTC Medications: Motrin (available over the counter): take according to label instructions. Understanding of the discharge instructions verbalized by patient and family. Follow-up with: [facility], , , [address], , [place], [address] Follow up in one week. Call for an appointment. ADDITIONAL INFORMATION Mechanical Fall You have had a fall today. It appears that the cause is mechanical. That means that you slipped, tripped or lost your balance. If your fall had been due to fainting or a seizure, further tests would be required. Home Care: Rest today and resume your normal activities when you are feeling back to normal. If you were injured during the fall, follow the advice from your doctor regarding care of your injury. You may use acetaminophen (Tylenol) or ibuprofen (Motrin, Advil) to control pain, unless another pain medicine was prescribed. [NOTE: If you have chronic liver or kidney disease or ever had a stomach ulcer or GI bleeding, talk with your doctor before using these medicines.] Fall Prevention: Was there anything that caused your fall that can be fixed, removed, or replaced? Make your home safe by keeping walkways clear of objects you may trip over. Use non-slip pads under rugs. Do not walk in poorly lit areas. Do not stand on chairs or wobbly ladders. Use caution when reaching overhead or looking upward. This position can cause a loss of balance. Be sure your shoes fit properly, have non-slip bottoms and are in good condition. Be cautious when going up and down curbs, and walking on uneven sidewalks. If your balance is poor, consider using a cane or walker. Stay as active as you can. Balance, flexibility, strength, and endurance all come from exercise. They all play a role in preventing falls. Follow Up with your doctor or as advised by our staff. Get Prompt Medical Attention if any of the following occur: Repeated mechanical falls, or unexplained falls Dizziness, fainting or seizure Severe headache Chest pain or shortness of breath Palpitations (very rapid or very slow or irregular heartbeat) Blood in vomit, stools (black or red color) Weakness of an arm or leg or one side of the face Difficulty with speech or vision Contusion,Soft Tissue You have a CONTUSION, which is a bruise with swelling and some bleeding under the skin. There are no broken bones. This injury takes a few days to a few weeks to heal. Home Care: 1) Keep the injured part elevated to reduce pain and swelling. This is especially important during the first 48 hours. 2) Make an ice pack (ice cubes in a plastic bag, wrapped in a towel) and apply for 20 minutes every 1-2 hours the first day. Continue this 3-4 times a day until the pain and swelling goes away. 3) You may use acetaminophen (Tylenol) or ibuprofen (Motrin, Advil) to control pain, unless another pain medicine was prescribed. [ NOTE : If you have chronic liver or kidney disease or ever had a stomach ulcer or GI bleeding, talk with your doctor before using these medicines.] Follow Up with your doctor or this facility if you are not improving within the next THREE days. [NOTE: If X-rays were taken, they will be reviewed by a radiologist. You will be notified of any new findings that may affect your care.] Get Prompt Medical Attention if any of the following occur: -- Pain or swelling increases -- Injured arm or leg becomes cold, blue, numb or tingly -- Redness, warmth or drainage from the skin You have been given the following additional information: Fall, Mechanical Contusion, Soft Tissue You may walk and bear weight as tolerated. (Electronically signed by Jj Rizvi MD 04/14/2016 19:53)
--- NOTE | 2016-04-14 19:54 | ED MAR SUMMARY ---
..... Medication Administration Record Located Within [facility] [address] [place] [id number] Patient: NICOLE MARTIN Visit ID: [id number] 50y, F Weight: 86.1 kg Height/Length: 64 in BMI: 32.6 ALLERGIES: Amoxicillin, Bactrim, Ciprofloxacin, Diflucan
--- NOTE | 2016-04-14 19:54 | ED MAR SUMMARY ---
..... Medication Administration Record [facility] [address] [place], [place] [id number] Patient: NICOLE MARTIN Visit ID: [id number] 50y, F Weight: 86.1 kg Height/Length: 64 in BMI: 32.6 ALLERGIES: Amoxicillin, Bactrim, Ciprofloxacin, Diflucan
--- NOTE | 2016-04-14 19:54 | ED MED RECONCILIATION SUMMARY ---
Patient: NICOLE MARTIN Medication Reconciliation Report [facility] VisitID: [id number] [address] [place] [address] 50y, F Registration Date/Time: 04/14/2016 Weight: 86.1 kg Height/Length: 64 in. BMI: 32.6 ALLERGIES: Amoxicillin, Bactrim, Ciprofloxacin, Diflucan The patient's Home Medications are listed below: CONTINUE TAKING THE FOLLOWING MEDICATIONS: Metformin 2000 mg bid The source(s) of the original Home Medication information: Not obtained. The following Medications were given to the patient in the Emergency Department: None. The following Medications were prescribed to the patient: Motrin (available over the counter): take according to label instructions. -- Jj Rizvi MD Hydrocodone/APAP 5mg/325mg: take 1 to 2 orally every 6 hours as needed for pain. Dispense fifteen (15). No refills. -- Jj Rizvi MD
--- NOTE | 2016-04-14 19:54 | ED MED RECONCILIATION SUMMARY ---
Patient: NICOLE MARTIN Medication Reconciliation Report [facility] VisitID: [id number] [address] [place] [address] 50y, F Registration Date/Time: 04/14/2016 Weight: 86.1 kg Height/Length: 64 in. BMI: 32.6 ALLERGIES: Amoxicillin, Bactrim, Ciprofloxacin, Diflucan The patient's Home Medications are listed below: CONTINUE TAKING THE FOLLOWING MEDICATIONS: Metformin 2000 mg bid The source(s) of the original Home Medication information: Not obtained. The following Medications were given to the patient in the Emergency Department: None. The following Medications were prescribed to the patient: Motrin (available over the counter): take according to label instructions. -- Jj Rizvi MD Hydrocodone/APAP 5mg/325mg: take 1 to 2 orally every 6 hours as needed for pain. Dispense fifteen (15). No refills. -- Jj Rizvi MD
== END 2016-04-14 13:20 | disposition home or self-care (01) ==
LOC: ED SRH 11:59
DX: S80.01XA Contusion of right knee, initial encounter (principal); Z88.0 Allergy status to penicillin; W01.0XXA Fall on same level from slipping, tripping and stumbling without subsequent striking against object, initial encounter; Y93.01 Activity, walking, marching and hiking; Y92.009 Unspecified place in unspecified non-institutional (private) residence as the place of occurrence of the external cause; Y99.9 Unspecified external cause status; M17.11 Unilateral primary osteoarthritis, right knee; E11.9 Type 2 diabetes mellitus without complications; I10 Essential (primary) hypertension; Z88.1 Allergy status to other antibiotic agents

== ENCOUNTER 2016-07-04 03:33 | Emergency (ER) | payer OTHER ==
--- NOTE | 2016-07-04 04:17 | ED NURSING NOTES ---
Clinical Report - Nurses [facility] [address] [place] [address] 07/04/2016 3:33 Patient: NICOLE MARTIN TRIAGE Triage time 03:40. Chief Complaint: RIGHT EAR PAIN and SINUS CONGESTION. --03:43 Татьяна Rivers R.N. 03:40 07/04/16. BP: 148/78 taken on the left arm, while lying. HR: 83 (regular and normal rate). RR: 18 (regular). O2 saturation: 100% on room air. Temp: 98.7 F (oral). Pain level now: 08/19. --03:43 Татьяна Rivers R.N. Weight: 86.1 kg stated. Height/Length: 64 inches Per Patient. BMI: 32.6. --03:40 Татьяна Rivers R.N. Medications MetFORMIN HCl Oral 1500 mg, daily. --03:42 Татьяна Rivers R.N. Allergies Amoxicillin.(rash) Bactrim.(rash) Ciprofloxacin.(hives) Diflucan.(rash) --03:43 Татьяна Rivers R.N. History Arrived by private vehicle. Primary physician (none). This started just prior to arrival. She has had sinus pain (since yesterday). SOCIAL HX: Never smoker. No alcohol use or drug use. --03:43 Татьяна Rivers R.N. Interventions ID band on patient. --03:43 Татьяна Rivers R.N. PHYSICAL ASSESSMENT GENERAL / NEURO / PSYCH: Alert. Appears in no acute distress. HEENT: Pupils equal, round and reactive to light. Pain upon movement of the right auricle. SKIN: Skin is warm and dry. --03:44 Татьяна Rivers R.N. NURSING PROGRESS NOTES Two patient identifiers checked. Call light placed in reach. Side rails up x 1. Bed placed in lowest position. Brakes of bed on. --03:45 Татьяна Rivers R.N. Patient ready for evaluation- chart flagged. --03:45 Татьяна Rivers R.N. DISPOSITION / DISCHARGE Departure time: 425. Condition at departure: unchanged and stable. No learning barriers present. Discharge instructions provided and reviewed with the patient and spouse. Reviewed medication(s) side effects, precautions, dosing and course information. Prescription(s) given to the patient. Patient verbalized understanding. Written instructions provided in Gibraltarian. The patient was discharged by the physician. She was discharged home and accompanied by spouse. She left the Emergency Department ambulatory and via (ambulatory). Driving (walked). --04:31 Татьяна Rivers R.N. 04:29 07/04/16. BP: 143/68. HR: 74. RR: 18. O2 saturation: 100%. Temp: deferred. Pain level now: 08/19. --04:31 Татьяна Rivers R.N. Locked/Released at 07/04/2016 4:31 by Татьяна Rivers R.N.
--- NOTE | 2016-07-04 04:17 | ED CLINICAL REPORT ---
Clinical Report - Physicians/Mid Levels [facility] [address] [place] [address] 07/04/2016 3:33 Patient: NICOLE MARTIN Time Seen: 04:10 Jul 04 2016. Arrived- By private vehicle. Historian- patient. CPT: ER phys charges level 3 (#[id number]). HISTORY OF PRESENT ILLNESS Chief Complaint: EARACHE. Is still present. Onset during light activity. Modifying factors. Not worsened by anything. Not relieved by anything. Location- right ear. The pain is described as moderate. The patient has had ear pain. She has had nasal congestion and sinus pressure. Similar symptoms previously: Recent medical care: Not recently seen/assessed. REVIEW OF SYSTEMS No fever, chills, cough, difficulty breathing or chest pain. No nausea, vomiting, diarrhea, abdominal pain or difficulty with urination. No skin rash or enlarged lymph nodes. blood sugars running less than 150. All systems otherwise negative, except as recorded above. PAST HISTORY See nurses notes. Diabetes mellitus. Medications: MetFORMIN HCl Oral 1500 mg, daily. Allergies: Amoxicillin.(rash) Bactrim.(rash) Ciprofloxacin.(hives) Diflucan.(rash). SOCIAL HISTORY Never smoker. No alcohol use or drug use. ADDITIONAL NOTES The nursing notes have been reviewed. PHYSICAL EXAM Vital Signs: 07/04/2016 03:40 BP: 148/78. HR: 83. RR: 18. O2 saturation: 100%. Temp: 98.7 F. Pain level now: 6/10. Appearance: Alert. Patient in mild distress. Eyes: Eyes normal inspection. Ear (left): Left ear normal. Throat: Pharynx normal. No tonsillar exudate. Ear (right): There is erythema, dullness and bulging of the tympanic membrane and fluid behind the tympanic membrane. Right ear normal. Nose: Tenderness present to percussion/palpation of the sinuses: moderate right and left maxillary tenderness. Neck: Normal inspection. Neck supple. No carotid bruit or meningeal signs. CVS: Normal heart rate and rhythm. Heart sounds normal. Respiratory: No respiratory distress. Breath sounds normal. Abdomen: Soft and nontender. Back: Normal inspection. Skin: Skin warm. Normal skin color. No rash. Extremities: Extremities exhibit normal ROM. No lower extremity edema. Neuro: Oriented X 3. No motor deficit. No sensory deficit. PROGRESS AND PROCEDURES Patient/family counseled. Disposition: Discharged. Condition: stable. CLINICAL IMPRESSION Acute and recurrent suppurative right otitis media. No perforation of right tympanic membrane. Acute maxillary sinusitis Chronic, well controlled type 2 diabetes. No hypoglycemia or coma. INSTRUCTIONS Drink plenty of fluids. Warnings: Further evaluation is necessary. Your Current Medications: CONTINUE TAKING THE FOLLOWING MEDICATIONS: MetFORMIN HCl Oral : 1500 mg daily. Prescription Medications: Hydrocodone/APAP 5mg/325mg: take 1 to 2 orally every 6 hours as needed for pain. Dispense fifteen (15). No refills. Zithromax 250 mg tablets: take 2 orally today, followed by 1 daily for the next 4 days. No refills. Substitution is permissible. Follow-up: Follow up with your doctor in one week. Call for an appointment. Understanding of the discharge instructions verbalized by patient. Discharge instructions reviewed with and understanding was verbalized by real estate utilization officer. (Electronically signed by Jj Rizvi MD 07/11/2016 15:01)
--- NOTE | 2016-07-04 04:17 | ED CLINICAL REPORT ---
Clinical Report - Physicians/Mid Levels [facility] [address] [place] [address] 07/04/2016 3:33 Patient: NICOLE MARTIN Time Seen: 04:10 Jul 04 2016. Arrived- By private vehicle. Historian- patient. CPT: ER phys charges level 3 (#[id number]). HISTORY OF PRESENT ILLNESS Chief Complaint: EARACHE. Is still present. Onset during light activity. Modifying factors. Not worsened by anything. Not relieved by anything. Location- right ear. The pain is described as moderate. The patient has had ear pain. She has had nasal congestion and sinus pressure. Similar symptoms previously: Recent medical care: Not recently seen/assessed. REVIEW OF SYSTEMS No fever, chills, cough, difficulty breathing or chest pain. No nausea, vomiting, diarrhea, abdominal pain or difficulty with urination. No skin rash or enlarged lymph nodes. blood sugars running less than 150. All systems otherwise negative, except as recorded above. PAST HISTORY See nurses notes. Diabetes mellitus. Medications: MetFORMIN HCl Oral 1500 mg, daily. Allergies: Amoxicillin.(rash) Bactrim.(rash) Ciprofloxacin.(hives) Diflucan.(rash). SOCIAL HISTORY Never smoker. No alcohol use or drug use. ADDITIONAL NOTES The nursing notes have been reviewed. PHYSICAL EXAM Vital Signs: 07/04/2016 03:40 BP: 148/78. HR: 83. RR: 18. O2 saturation: 100%. Temp: 98.7 F. Pain level now: 6/10. Appearance: Alert. Patient in mild distress. Eyes: Eyes normal inspection. Ear (left): Left ear normal. Throat: Pharynx normal. No tonsillar exudate. Ear (right): There is erythema, dullness and bulging of the tympanic membrane and fluid behind the tympanic membrane. Right ear normal. Nose: Tenderness present to percussion/palpation of the sinuses: moderate right and left maxillary tenderness. Neck: Normal inspection. Neck supple. No carotid bruit or meningeal signs. CVS: Normal heart rate and rhythm. Heart sounds normal. Respiratory: No respiratory distress. Breath sounds normal. Abdomen: Soft and nontender. Back: Normal inspection. Skin: Skin warm. Normal skin color. No rash. Extremities: Extremities exhibit normal ROM. No lower extremity edema. Neuro: Oriented X 3. No motor deficit. No sensory deficit. PROGRESS AND PROCEDURES Patient/family counseled. Disposition: Discharged. Condition: stable. CLINICAL IMPRESSION Acute and recurrent suppurative right otitis media. No perforation of right tympanic membrane. Acute maxillary sinusitis Chronic, well controlled type 2 diabetes. No hypoglycemia or coma. INSTRUCTIONS Drink plenty of fluids. Warnings: Further evaluation is necessary. Your Current Medications: CONTINUE TAKING THE FOLLOWING MEDICATIONS: MetFORMIN HCl Oral : 1500 mg daily. Prescription Medications: Hydrocodone/APAP 5mg/325mg: take 1 to 2 orally every 6 hours as needed for pain. Dispense fifteen (15). No refills. Zithromax 250 mg tablets: take 2 orally today, followed by 1 daily for the next 4 days. No refills. Substitution is permissible. Follow-up: Follow up with your doctor in one week. Call for an appointment. Understanding of the discharge instructions verbalized by patient. Discharge instructions reviewed with and understanding was verbalized by observer gravity prospecting. (Electronically signed by Jj Rizvi MD 07/11/2016 15:01)
--- NOTE | 2016-07-04 04:17 | ED NURSING NOTES ---
Clinical Report - Nurses [facility] [address] [place] [address] 07/04/2016 3:33 Patient: NICOLE MARTIN TRIAGE Triage time 03:40. Chief Complaint: RIGHT EAR PAIN and SINUS CONGESTION. --03:43 Татьяна Rivers R.N. 03:40 07/04/16. BP: 148/78 taken on the left arm, while lying. HR: 83 (regular and normal rate). RR: 18 (regular). O2 saturation: 100% on room air. Temp: 98.7 F (oral). Pain level now: 08/19. --03:43 Татьяна Rivers R.N. Weight: 86.1 kg stated. Height/Length: 64 inches Per Patient. BMI: 32.6. --03:40 Татьяна Rivers R.N. Medications MetFORMIN HCl Oral 1500 mg, daily. --03:42 Татьяна Rivers R.N. Allergies Amoxicillin.(rash) Bactrim.(rash) Ciprofloxacin.(hives) Diflucan.(rash) --03:43 Татьяна Rivers R.N. History Arrived by private vehicle. Primary physician (none). This started just prior to arrival. She has had sinus pain (since yesterday). SOCIAL HX: Never smoker. No alcohol use or drug use. --03:43 Татьяна Rivers R.N. Interventions ID band on patient. --03:43 Татьяна Rivers R.N. PHYSICAL ASSESSMENT GENERAL / NEURO / PSYCH: Alert. Appears in no acute distress. HEENT: Pupils equal, round and reactive to light. Pain upon movement of the right auricle. SKIN: Skin is warm and dry. --03:44 Татьяна Rivers R.N. NURSING PROGRESS NOTES Two patient identifiers checked. Call light placed in reach. Side rails up x 1. Bed placed in lowest position. Brakes of bed on. --03:45 Татьяна Rivers R.N. Patient ready for evaluation- chart flagged. --03:45 Татьяна Rivers R.N. DISPOSITION / DISCHARGE Departure time: 425. Condition at departure: unchanged and stable. No learning barriers present. Discharge instructions provided and reviewed with the patient and spouse. Reviewed medication(s) side effects, precautions, dosing and course information. Prescription(s) given to the patient. Patient verbalized understanding. Written instructions provided in Qatari. The patient was discharged by the physician. She was discharged home and accompanied by spouse. She left the Emergency Department ambulatory and via (ambulatory). Driving (walked). --04:31 Татьяна Rivers R.N. 04:29 07/04/16. BP: 143/68. HR: 74. RR: 18. O2 saturation: 100%. Temp: deferred. Pain level now: 08/19. --04:31 Татьяна Rivers R.N. Locked/Released at 07/04/2016 4:31 by Татьяна Rivers R.N.
--- NOTE | 2016-07-11 15:01 | ED MAR SUMMARY ---
..... Medication Administration Record [facility] [address] [place], [place] [id number] Patient: NICOLE MARTIN Visit ID: [id number] 50y, F Weight: 86.1 kg Height/Length: 64 in BMI: 32.6 ALLERGIES: Amoxicillin, Bactrim, Ciprofloxacin, Diflucan
--- NOTE | 2016-07-11 15:01 | ED MED RECONCILIATION SUMMARY ---
Patient: NICOLE MARTIN Medication Reconciliation Report [facility] VisitID: [id number] [address] [place] [address] 50y, F Registration Date/Time: 07/04/2016 Weight: 86.1 kg Height/Length: 64 in. BMI: 32.6 ALLERGIES: Amoxicillin, Bactrim, Ciprofloxacin, Diflucan The patient's Home Medications are listed below: CONTINUE TAKING THE FOLLOWING MEDICATIONS: MetFORMIN HCl Oral 1500 mg, daily The source(s) of the original Home Medication information: Not obtained. The following Medications were given to the patient in the Emergency Department: None. The following Medications were prescribed to the patient: Hydrocodone/APAP 5mg/325mg: take 1 to 2 orally every 6 hours as needed for pain. Dispense fifteen (15). No refills. -- Jj Rizvi MD Zithromax 250 mg tablets: take 2 orally today, followed by 1 daily for the next 4 days. No refills. Substitution is permissible. -- Jj Rizvi MD
--- NOTE | 2016-07-11 15:01 | ED MAR SUMMARY ---
..... Medication Administration Record [facility] [address] [place], [place] [id number] Patient: NICOLE MARTIN Visit ID: [id number] 50y, F Weight: 86.1 kg Height/Length: 64 in BMI: 32.6 ALLERGIES: Amoxicillin, Bactrim, Ciprofloxacin, Diflucan
--- NOTE | 2016-07-11 15:01 | ED DISCHARGE INSTRUCTIONS ---
Patient: NICOLE MARTIN General Instructions [facility] VisitID: [id number] [place] [address] 50y, F Registration Date/Time: 07/04/2016 Acute and recurrent suppurative right otitis media. No perforation of right tympanic membrane. Acute maxillary sinusitis Chronic, well controlled type 2 diabetes. No hypoglycemia or coma. INSTRUCTIONS Drink plenty of fluids. Warnings: Further evaluation is necessary. Your Current Medications: CONTINUE TAKING THE FOLLOWING MEDICATIONS: MetFORMIN HCl Oral : 1500 mg daily. Prescription Medications: Hydrocodone/APAP 5mg/325mg: take 1 to 2 orally every 6 hours as needed for pain. Dispense fifteen (15). No refills. Zithromax 250 mg tablets: take 2 orally today, followed by 1 daily for the next 4 days. No refills. Substitution is permissible. Follow-up: Follow up with your doctor in one week. Call for an appointment. Understanding of the discharge instructions verbalized by patient. Discharge instructions reviewed with and understanding was verbalized by health information coder. ADDITIONAL INFORMATION Middle Ear Infection (Adult) You have an infection of the middle ear (the space behind the eardrum). It can occur as a result of the common cold. This is because congestion can block the internal passage (eustachian tube) that drains fluid from the middle ear. When the middle ear fills with fluid, bacteria can grow there and cause an infection. Oral antibiotics are used to treat this illness, not ear drops. Symptoms usually start to improve within 1-2 days of treatment. Home Care: Finish all of the antibiotic medicine prescribed, even though you may feel better after the first few days. You may use acetaminophen (Tylenol) or ibuprofen (Motrin, Advil) to control pain, unless something else was prescribed. [NOTE: If you have chronic liver or kidney disease or have ever had a stomach ulcer or GI bleeding, talk with your doctor before using these medicines.] (Do not give aspirin to anyone under 18 years of age who is ill with a fever. It may cause severe liver damage.) Follow Up with your doctor or this facility in two weeks if all symptoms have not cleared, or if hearing does not return to normal within one month. Get Prompt Medical Attention if any of the following occur: Ear pain gets worse or does not improve after three days of treatment Unusual drowsiness or confusion Neck pain, stiff neck or headache Fluid or blood draining from the ear canal Fever of 100.4F (38C) or higher after 3 days of antibiotics, or as directed by your healthcare provider Convulsion (seizure) Sinusitis [Abx Tx] The sinuses are air-filled spaces within the bones of the face. They connect to the inside of the nose. Sinusitis is an inflammation of the tissue lining the sinus cavity. Sinus inflammation can occur during a cold or hay-fever (allergies to pollens and other particles in the air) and cause symptoms of sinus congestion and fullness. A sinus infection causes fever, headache and facial pain. There is usually green or yellow drainage from the nose or into the back of the throat (post-nasal drip). Antibiotics are prescribed to treat this condition. Home Care: Drink plenty of water, hot tea, and other liquids to stay well hydrated. This thins the mucus and promotes sinus drainage. Apply heat to the painful areas of the face. Use a towel soaked in hot water. Or, apprenticeship training representative the shower and direct the hot spray onto your face. This is a good way to inhale warm water vapor and get heat on your face at the same time. (Cover your mouth and nose with your hands so you can still breathe as you do this.) Use a vaporizer with products such as Buyapowa VapoRub (contains menthol) at night. Suck on peppermint, menthol or eucalyptus hard candies during the day. An expectorant containing guaifenesin (such as Robitussin), helps to thin the mucus and promote drainage from the sinuses. Xmgp-kme-ylzzece decongestants may be used unless a similar medicine was prescribed. Nasal sprays work the fastest. Use one that contains phenylephrine (Anup-synephrine, Sinex and others) or oxymetazoline (Afrin). First blow the nose gently to remove mucus, then apply the drops. Do not use these medicines more often than directed on the label or for more than three days or symptoms may worsen. You may also use tablets containing pseudoephedrine (Sudafed). Many sinus remedies combine ingredients, which may increase side effects. Read the labels or ask the pharmacist for help. NOTE: Persons with high blood pressure should not use decongestants. They can raise blood pressure. Antihistamines are useful if allergies are a cause of your sinusitis. The mildest one is chlorpheniramine (available without a prescription). The dose for adults is 8-12mg three times a day. [NOTE: Do not use chlorpheniramine if you have glaucoma or if you are a man with trouble urinating due to an enlarged prostate.] Claritin (loratidine) is an antihistamine that causes less drowsiness and is a good alternative for daytime use. Do not use nasal rinses or irrigation during an acute sinus infection, unless advised by your doctor. Rinsing may spread the infection to other sinuses. You may use acetaminophen (Tylenol) or ibuprofen (Motrin, Advil) to control pain, unless another pain medicine was prescribed. [ NOTE: If you have chronic liver or kidney disease or ever had a stomach ulcer, talk with your doctor before using these medicines.] (Aspirin should never be used in anyone under 18 years of age who is ill with a fever. It may cause severe liver damage.) Finish the full course, even if you are feeling better after a few days. Follow Up with your doctor or this facility in one week or as instructed by our staff if not improving. Get Prompt Medical Attention if any of the following occur: Facial pain or headache becomes more severe Stiff neck Unusual drowsiness or confusion, or not acting like your normal self Swelling of the forehead or eyelids Vision problems including blurred or double vision Fever of 100.4F (38C) or higher, or as directed by your healthcare provider Seizure You have been given the following additional information: Otitis Media, Abx Tx (Adult) Sinusitis, Abx Tx (Electronically signed by Jj Rizvi MD 07/11/2016 15:01)
--- NOTE | 2016-07-11 15:01 | ED MED RECONCILIATION SUMMARY ---
Patient: NICOLE MARTIN Medication Reconciliation Report [facility] VisitID: [id number] [address] [place] [address] 50y, F Registration Date/Time: 07/04/2016 Weight: 86.1 kg Height/Length: 64 in. BMI: 32.6 ALLERGIES: Amoxicillin, Bactrim, Ciprofloxacin, Diflucan The patient's Home Medications are listed below: CONTINUE TAKING THE FOLLOWING MEDICATIONS: MetFORMIN HCl Oral 1500 mg, daily The source(s) of the original Home Medication information: Not obtained. The following Medications were given to the patient in the Emergency Department: None. The following Medications were prescribed to the patient: Hydrocodone/APAP 5mg/325mg: take 1 to 2 orally every 6 hours as needed for pain. Dispense fifteen (15). No refills. -- Jj Rizvi MD Zithromax 250 mg tablets: take 2 orally today, followed by 1 daily for the next 4 days. No refills. Substitution is permissible. -- Jj Rizvi MD
== END 2016-07-04 04:26 | disposition home or self-care (01) ==
LOC: ED SRH 03:33
DX: H66.005 Acute suppurative otitis media without spontaneous rupture of ear drum, recurrent, left ear (principal); J01.00 Acute maxillary sinusitis, unspecified; E11.9 Type 2 diabetes mellitus without complications; Z79.84 Long term (current) use of oral hypoglycemic drugs

== ENCOUNTER 2016-07-05 23:00 | Emergency (ER) | payer OTHER ==
--- NOTE | 2016-07-06 00:37 | ED CLINICAL REPORT ---
Clinical Report - Physicians/Mid Levels [facility] [address] [place] [address] 07/05/2016 23:01 Patient: NICOLE MARTIN Time Seen: 23:06. Arrived- By private vehicle. Historian- patient. HISTORY OF PRESENT ILLNESS Chief Complaint: EARACHE. This started several days ago and is still present. It was gradual in onset and has been constant and waxing/waning. Location- right ear. The pain is described as moderate. The patient has had ear pain and hearing loss. No ear drainage. She has had nasal congestion. Similar symptoms previously: Recent medical care: The patient was seen recently at this facility. Diagnosis: otitis externa. ( The patient reports that she was seen here several days ago and that she has taken all but one tablet of her antibiotic and all of her pain medications. However the record shows that she was here yesterday. Nursing staff confirm this. The patient is requesting more pain medication.). REVIEW OF SYSTEMS No chills, fever, sweats, calf pain or chest pain. No cough, difficulty breathing, pedal edema, palpitations or abdominal pain. No urinary problems. All systems otherwise negative, except as recorded above. PAST HISTORY Problems: Sinusitis. Otitis Media. Contusion. Fall. TIA - Transient Ischemic Attack. CVA - Cerebrovascular Accident. UTI - Urinary Tract Infection. Headache. Diabetes Mellitus. Hypertension. Dental Abscess. Type II diabetes. High cholesterol. Hypertenson. Additional Surgeries: . Hysterectomy. Medications: MetFORMIN HCl Oral 1500 mg, daily. Allergies: Amoxicillin.(rash) Bactrim.(rash) Ciprofloxacin.(hives) Diflucan.(rash). SOCIAL HISTORY Never smoker. No alcohol use or drug use. FAMILY HISTORY No significant family medical history. ADDITIONAL NOTES The nursing notes have been reviewed. PHYSICAL EXAM Vital Signs: 07/05/2016 23:05 BP: 158/64. HR: 94. RR: 20. O2 saturation: 100%. Temp: 98 F. Pain level now: 6/10. Have been reviewed. Appearance: Alert. Throat: Pharynx normal. Ear (right): There is mild dullness of the tympanic membrane (with mild retraction). No TM tube seen. Ear (left): Left ear normal. Nose: Nose normal. Neck: Normal inspection. Neck supple. CVS: Normal heart rate and rhythm. Heart sounds normal. Respiratory: No respiratory distress. Breath sounds normal. Abdomen: Soft and nontender. Back: Normal inspection. No CVA tenderness. Skin: Normal skin color. Normal skin turgor. Extremities: Extremities exhibit normal ROM. No lower extremity edema. PROGRESS AND PROCEDURES Course of Care: review of the patient's ANA ROSA forearm reveals that she has had 23 visits to emergency rooms in [place] this year. Additionally she has received prescriptions for scheduled to medications from 12 different providers. I explained to the patient that I would not be prescribing any narcotic medications as she had requested. Patient/family counseled. Old medical records reviewed. Disposition: Discharged. Condition: stable. CLINICAL IMPRESSION Right eustachian tube dysfunction INSTRUCTIONS Warnings: GENERAL WARNINGS: Return or contact your physician immediately if your condition worsens or changes unexpectedly, if not improving as expected, or if other problems arise. OTC Medications: Afrin nasal spray (Available over the counter): Take according to label instructions. Understanding of the discharge instructions verbalized by patient. Follow-up with: Adrian Hogue MD, ENT, , [facility], [address] [place], [place] [phone] Follow up as needed. Call for the next available appointment. Follow-up with: [facility], , , [address], , [place] [phone] Follow up as needed. Call for an appointment. (Electronically signed by David Park MD 07/06/2016 0:40)
--- NOTE | 2016-07-06 00:37 | ED CLINICAL REPORT ---
Clinical Report - Physicians/Mid Levels [facility] [address] [place] [address] 07/05/2016 23:01 Patient: NICOLE MARTIN Time Seen: 23:06. Arrived- By private vehicle. Historian- patient. HISTORY OF PRESENT ILLNESS Chief Complaint: EARACHE. This started several days ago and is still present. It was gradual in onset and has been constant and waxing/waning. Location- right ear. The pain is described as moderate. The patient has had ear pain and hearing loss. No ear drainage. She has had nasal congestion. Similar symptoms previously: Recent medical care: The patient was seen recently at this facility. Diagnosis: otitis externa. ( The patient reports that she was seen here several days ago and that she has taken all but one tablet of her antibiotic and all of her pain medications. However the record shows that she was here yesterday. Nursing staff confirm this. The patient is requesting more pain medication.). REVIEW OF SYSTEMS No chills, fever, sweats, calf pain or chest pain. No cough, difficulty breathing, pedal edema, palpitations or abdominal pain. No urinary problems. All systems otherwise negative, except as recorded above. PAST HISTORY Problems: Sinusitis. Otitis Media. Contusion. Fall. TIA - Transient Ischemic Attack. CVA - Cerebrovascular Accident. UTI - Urinary Tract Infection. Headache. Diabetes Mellitus. Hypertension. Dental Abscess. Type II diabetes. High cholesterol. Hypertenson. Additional Surgeries: . Hysterectomy. Medications: MetFORMIN HCl Oral 1500 mg, daily. Allergies: Amoxicillin.(rash) Bactrim.(rash) Ciprofloxacin.(hives) Diflucan.(rash). SOCIAL HISTORY Never smoker. No alcohol use or drug use. FAMILY HISTORY No significant family medical history. ADDITIONAL NOTES The nursing notes have been reviewed. PHYSICAL EXAM Vital Signs: 07/05/2016 23:05 BP: 158/64. HR: 94. RR: 20. O2 saturation: 100%. Temp: 98 F. Pain level now: 6/10. Have been reviewed. Appearance: Alert. Throat: Pharynx normal. Ear (right): There is mild dullness of the tympanic membrane (with mild retraction). No TM tube seen. Ear (left): Left ear normal. Nose: Nose normal. Neck: Normal inspection. Neck supple. CVS: Normal heart rate and rhythm. Heart sounds normal. Respiratory: No respiratory distress. Breath sounds normal. Abdomen: Soft and nontender. Back: Normal inspection. No CVA tenderness. Skin: Normal skin color. Normal skin turgor. Extremities: Extremities exhibit normal ROM. No lower extremity edema. PROGRESS AND PROCEDURES Course of Care: review of the patient's ANA ROSA forearm reveals that she has had 23 visits to emergency rooms in [place] this year. Additionally she has received prescriptions for scheduled to medications from 12 different providers. I explained to the patient that I would not be prescribing any narcotic medications as she had requested. Patient/family counseled. Old medical records reviewed. Disposition: Discharged. Condition: stable. CLINICAL IMPRESSION Right eustachian tube dysfunction INSTRUCTIONS Warnings: GENERAL WARNINGS: Return or contact your physician immediately if your condition worsens or changes unexpectedly, if not improving as expected, or if other problems arise. OTC Medications: Afrin nasal spray (Available over the counter): Take according to label instructions. Understanding of the discharge instructions verbalized by patient. Follow-up with: Adrian Hogue MD, ENT, , [facility], [address] [place], [place] [phone] Follow up as needed. Call for the next available appointment. Follow-up with: [facility], , , [address], , [place] [phone] Follow up as needed. Call for an appointment. (Electronically signed by David Park MD 07/06/2016 0:40)
--- NOTE | 2016-07-06 00:37 | ED NURSING NOTES ---
Clinical Report - Nurses [facility] [place] [address] 07/05/2016 23:01 Patient: NICOLE MARTIN TRIAGE Triage time 23:Jul 05 2016. Acuity: LEVEL 4. Chief Complaint: RIGHT EAR PAIN. SEPSIS SCREEN: Sepsis Screen: negative. Infection suspected/documented. Heart rate greater than 90. SANIYA COMA SCORE: Saniya Coma Scale: 15- eyes open spontaneously (4); best verbal response- oriented x 4 (5); best motor response- obeys commands (6). --23:08 Mariana Aldana 23:05 07/05/16. BP: 158/64. HR: 94. RR: 20. O2 saturation: 100% on room air. Temp: 98 F (oral). Pain level now: 08/19. --23:08 Mariana Aldana. Weight: 86.1 kg stated. Height/Length: 64 inches Per Patient. BMI: 32.6. --23:06 Mariana Aldana. Medications MetFORMIN HCl Oral 1500 mg, daily. --23:06 Mariana Aldana. Medication/allergy information source: the patient. --23:08 Mariana Aldana. Allergies Amoxicillin.(rash) Bactrim.(rash) Ciprofloxacin.(hives) Diflucan.(rash) --23:06 Mariana Aldana. History Arrived by private vehicle. Historian: patient. Accompanied by family. Primary physician (not at this time). Onset. (3 days). ( Patient was seen here Sunday and given antibiotics for an ear infection in the right ear. She reports she is almost done with her antibiotics but continues to have pain. She reports she is out of pain medications that were given.). PAST MEDICAL HX: Immunizations: up-to-date. The patient has had a hysterectomy. SOCIAL HX: Never smoker. No alcohol use or drug use. No infectious disease exposure. ABUSE ASSESSMENT: No report of abuse. FALL RISK ASSESSMENT: Fall risk assessment completed. No fall risk identified. NUTRITIONAL RISK ASSESSMENT: The nutritional risk assessment revealed no deficiencies. FUNCTIONAL ASSESSMENT: Functional assessment: no impairments noted. LEARNING NEEDS ASSESSMENT: The learning needs assessment revealed no barriers. SKIN INTEGRITY ASSESSMENT: Skin integrity risk assessment completed. No skin integrity risk identified. --: Mariana Aldana. PROBLEMS: Sinusitis. Otitis Media. Contusion. Fall. TIA - Transient Ischemic Attack. CVA - Cerebrovascular Accident. UTI - Urinary Tract Infection. Headache. Diabetes Mellitus. Hypertension. Dental Abscess. Type II diabetes. High cholesterol. Hypertenson. --: Mariana Aldana. ADDITIONAL SURGERIES: . Hysterectomy. --: Mariana Aldana. Interventions ID band on patient. To treatment room. --: Mariana Aldana. PHYSICAL ASSESSMENT Ambulatory to room. GENERAL / NEURO / PSYCH: Alert. Appears in no acute distress. HEENT: No facial asymmetry noted. RESPIRATORY: Respirations not labored. SKIN: Skin is warm and dry. --: Mariana Aldana. NURSING PROGRESS NOTES Warming measures: blanket applied. Reassurance given to the patient. Two patient identifiers checked. Call light placed in reach. Side rails up x 1. Bed placed in lowest position. Brakes of bed on. Patient ready for evaluation- chart flagged and ED physician notified. --: Mariana Aldana CERUMEN REMOVAL: Cerumen removal performed by nurse. Assisted by one nurse. Removal of cerumen from right ear using curette and syringe irrigation was performed with partial success. Following the procedure the patient was stable and no complications. Total time of assist / procedure: 15 minutes. --00: Mariana Aldana. DISPOSITION / DISCHARGE 00:37 07/06/16. Condition at departure: stable. The goals identified in the patient's plan of care were met. No learning barriers present. Discharge instructions provided and reviewed with the patient. Reviewed medication(s) side effects, precautions, dosing and course information. Prescription(s) given to the patient. Patient verbalized understanding. Written instructions provided in Indonesian. ( Follow up with ENT, call tomorrow for an appointment. Contact information provided. Establish primary care at your soonest convenience, [facility] contact information provided. Return if symptoms worsen. Patient verbalized understanding and had no questions at this time.). The patient was discharged by the physician. She was discharged home and accompanied by family. She left the Emergency Department ambulatory and via private vehicle. Family member driving. FALL RISK ASSESSMENT: Fall risk assessment completed. No fall risk identified. --00:37 Mariana Aldana 00:34 07/06/16. BP: 140/80. HR: 95. RR: 20. O2 saturation: 100% on room air. Temp: 98 F (oral). Pain level now: 08/19. --00:37 Mariana Aldana. Locked/Released at 07/06/2016 0:37 by Mariana Aldana,
--- NOTE | 2016-07-06 00:40 | ED MAR SUMMARY ---
..... Medication Administration Record [facility] [address] [place] [id number] Patient: NICOLE MARTIN Visit ID: [id number] 50y, F Weight: 86.1 kg Height/Length: 64 in BMI: 32.6 ALLERGIES: Amoxicillin, Bactrim, Ciprofloxacin, Diflucan
--- NOTE | 2016-07-06 00:40 | ED DISCHARGE INSTRUCTIONS ---
Patient: NICOLE MARTIN General Instructions [facility] VisitID: [id number] [address], [place] [address] 50y, F Registration Date/Time: 07/05/2016 Right eustachian tube dysfunction INSTRUCTIONS Warnings: GENERAL WARNINGS: Return or contact your physician immediately if your condition worsens or changes unexpectedly, if not improving as expected, or if other problems arise. OTC Medications: Afrin nasal spray (Available over the counter): Take according to label instructions. Understanding of the discharge instructions verbalized by patient. Follow-up with: Adrian Hogue MD, ENT, , [facility], [address] [place], [place] [phone] Follow up as needed. Call for the next available appointment. Follow-up with: [facility], , , [address], , [place], [phone] Follow up as needed. Call for an appointment. ADDITIONAL INFORMATION Fluid In The Middle Ear [Child, Serous Otitis] Earaches can happen without an infection. This can occur when air and fluid build up behind the eardrum causing pain and reduced hearing. This is called serous otitis media. It means fluid in the middle ear. It can happen when you have a cold if congestion blocks the passage that drains the middle ear (eustachian tube). It may also occur with nasal allergies, gastric acid reflux (GERD) or after a bacterial middle ear infection. Adenoid glands are located in the back of the throat near the opening of the eustachian tube. They commonly swell in children and can block the eustachian tube. The pain may come and go. You may hear clicking or popping sounds when chewing or swallowing. It often takes from several weeks up to three months for the fluid to clear on its own. Oral pain relievers and ear drops help with pain. Decongestants and antihistamines can be tried but their effect is not always helpful. This condition does not respond to antibiotics since there is no infection. If there has been no improvement after three months, surgery may be used to drain the fluid and insert a small tube in the eardrum to permit continued drainage. Because the middle ear fluid can become infected, it is important to watch for signs of an ear infection (see warning signs below), which may develop later. Home Care: FLUIDS: For infants under 1 year old, continue regular formula or breast feedings. If there is a fever, give oral rehydration solution between feedings. (You can buy this as Pedialyte, Infalyte or Rehydralyte from grocery and drug stores. No prescription is required.). For children over 1 year old, give plenty of fluids like water, juice, 7-Up, edilberto-russell, lemonade, Kedar-aid or popsicles. EATING: If your child doesn't want to eat solid foods, it's okay for a few days, as long as she/he drinks lots of fluid. PAIN or FEVER CONTROL: Use acetaminophen (Tylenol) for fever, fussiness or discomfort. In infants over six months of age, you may use ibuprofen (Children's Motrin) instead of Tylenol. [NOTE: If your child has chronic liver or kidney disease or ever had a stomach ulcer or GI bleeding, talk with your doctor before using these medicines.] (Aspirin should never be used in anyone under 18 years of age who is ill with a fever. It may cause severe liver damage.) EAR DROPS: Pain relieving ear drops may be prescribed. Use as directed. If you were not given a prescription for these ear drops, and if ibuprofen alone is not controlling pain, contact your doctor. Follow Up with your doctor or as advised if your child is not feeling better after three days. Get Prompt Medical Attention if any of the following occur: Ear pain gets worse or does not start to improve after three days of treatment Fever of 100.4F (38C) oral or 101.4F (38.5C) rectal or higher, not better with fever medication Unusual fussiness, drowsiness or confusion No tears when crying; "sunken" eyes or dry mouth; no wet diapers for 8 hours in infants, reduced urine output in older children No wet diapers for 8 hours, no tears when crying or dry mouth Headache, neck pain or stiff neck New rash appears Frequent diarrhea or vomiting Fluid or bloody drainage from the ear Convulsion (seizure) You have been given the following additional information: Earache W/O Infection (Child) (Electronically signed by David Park MD 07/06/2016 0:40)
--- NOTE | 2016-07-06 00:40 | ED MED RECONCILIATION SUMMARY ---
Patient: NICOLE MARTIN Medication Reconciliation Report [facility] VisitID: [id number] [address] [place] [address] 50y, F Registration Date/Time: 07/05/2016 Weight: 86.1 kg Height/Length: 64 in. BMI: 32.6 ALLERGIES: Amoxicillin, Bactrim, Ciprofloxacin, Diflucan The patient's Home Medications are listed below: THE FOLLOWING MEDICATIONS NEED TO BE RECONCILED: MetFORMIN HCl Oral 1500 mg, daily The source(s) of the original Home Medication information: patient The following Medications were given to the patient in the Emergency Department: None. The following Medications were prescribed to the patient: Afrin nasal spray (Available over the counter): Take according to label instructions. -- David Park MD
--- NOTE | 2016-07-06 00:40 | ED MAR SUMMARY ---
..... Medication Administration Record [facility] [address] [place] [id number] Patient: NICOLE MARTIN Visit ID: [id number] 50y, F Weight: 86.1 kg Height/Length: 64 in BMI: 32.6 ALLERGIES: Amoxicillin, Bactrim, Ciprofloxacin, Diflucan
--- NOTE | 2016-07-06 00:40 | ED MED RECONCILIATION SUMMARY ---
Patient: NICOLE MARTIN Medication Reconciliation Report [facility] VisitID: [id number] [address] [place] [address] 50y, F Registration Date/Time: 07/05/2016 Weight: 86.1 kg Height/Length: 64 in. BMI: 32.6 ALLERGIES: Amoxicillin, Bactrim, Ciprofloxacin, Diflucan The patient's Home Medications are listed below: THE FOLLOWING MEDICATIONS NEED TO BE RECONCILED: MetFORMIN HCl Oral 1500 mg, daily The source(s) of the original Home Medication information: patient The following Medications were given to the patient in the Emergency Department: None. The following Medications were prescribed to the patient: Afrin nasal spray (Available over the counter): Take according to label instructions. -- David Park MD
--- NOTE | 2016-07-06 00:40 | ED DISCHARGE INSTRUCTIONS ---
Patient: NICOLE MARTIN General Instructions [facility] VisitID: [id number] [address], [place] [address] 50y, F Registration Date/Time: 07/05/2016 Right eustachian tube dysfunction INSTRUCTIONS Warnings: GENERAL WARNINGS: Return or contact your physician immediately if your condition worsens or changes unexpectedly, if not improving as expected, or if other problems arise. OTC Medications: Afrin nasal spray (Available over the counter): Take according to label instructions. Understanding of the discharge instructions verbalized by patient. Follow-up with: Adrian Hogue MD, ENT, , [facility], [address] [place], [place] [id number] Follow up as needed. Call for the next available appointment. Follow-up with: [facility], , , [address], , [place], [phone] Follow up as needed. Call for an appointment. ADDITIONAL INFORMATION Fluid In The Middle Ear [Child, Serous Otitis] Earaches can happen without an infection. This can occur when air and fluid build up behind the eardrum causing pain and reduced hearing. This is called serous otitis media. It means fluid in the middle ear. It can happen when you have a cold if congestion blocks the passage that drains the middle ear (eustachian tube). It may also occur with nasal allergies, gastric acid reflux (GERD) or after a bacterial middle ear infection. Adenoid glands are located in the back of the throat near the opening of the eustachian tube. They commonly swell in children and can block the eustachian tube. The pain may come and go. You may hear clicking or popping sounds when chewing or swallowing. It often takes from several weeks up to three months for the fluid to clear on its own. Oral pain relievers and ear drops help with pain. Decongestants and antihistamines can be tried but their effect is not always helpful. This condition does not respond to antibiotics since there is no infection. If there has been no improvement after three months, surgery may be used to drain the fluid and insert a small tube in the eardrum to permit continued drainage. Because the middle ear fluid can become infected, it is important to watch for signs of an ear infection (see warning signs below), which may develop later. Home Care: FLUIDS: For infants under 1 year old, continue regular formula or breast feedings. If there is a fever, give oral rehydration solution between feedings. (You can buy this as Pedialyte, Infalyte or Rehydralyte from grocery and drug stores. No prescription is required.). For children over 1 year old, give plenty of fluids like water, juice, 7-Up, edilberto-russell, lemonade, Kedar-aid or popsicles. EATING: If your child doesn't want to eat solid foods, it's okay for a few days, as long as she/he drinks lots of fluid. PAIN or FEVER CONTROL: Use acetaminophen (Tylenol) for fever, fussiness or discomfort. In infants over six months of age, you may use ibuprofen (Children's Motrin) instead of Tylenol. [NOTE: If your child has chronic liver or kidney disease or ever had a stomach ulcer or GI bleeding, talk with your doctor before using these medicines.] (Aspirin should never be used in anyone under 18 years of age who is ill with a fever. It may cause severe liver damage.) EAR DROPS: Pain relieving ear drops may be prescribed. Use as directed. If you were not given a prescription for these ear drops, and if ibuprofen alone is not controlling pain, contact your doctor. Follow Up with your doctor or as advised if your child is not feeling better after three days. Get Prompt Medical Attention if any of the following occur: Ear pain gets worse or does not start to improve after three days of treatment Fever of 100.4F (38C) oral or 101.4F (38.5C) rectal or higher, not better with fever medication Unusual fussiness, drowsiness or confusion No tears when crying; "sunken" eyes or dry mouth; no wet diapers for 8 hours in infants, reduced urine output in older children No wet diapers for 8 hours, no tears when crying or dry mouth Headache, neck pain or stiff neck New rash appears Frequent diarrhea or vomiting Fluid or bloody drainage from the ear Convulsion (seizure) You have been given the following additional information: Earache W/O Infection (Child) (Electronically signed by David Park MD 07/06/2016 0:40)
== END 2016-07-06 00:35 | disposition home or self-care (01) ==
LOC: ED SRH 23:00
DX: H69.81 Other specified disorders of Eustachian tube, right ear (principal); E11.9 Type 2 diabetes mellitus without complications; Z79.84 Long term (current) use of oral hypoglycemic drugs; I10 Essential (primary) hypertension; Z88.1 Allergy status to other antibiotic agents